=== PATIENT | female | born 1955 | race Caucasian/White ===

== ENCOUNTER → 2016-05-23 | Outpatient (CLI) | payer BC ==
[~2016-05-23] MED LIST: ACET-1311 PEG; ALBINS/ NEB; ALPR-411 PEG; BSP/10 PEG; BUSP-8 GT; BUSP-8 PEG; CEPH500C2 PO; CLR10 PEG; CONJ.6255 PEG; DEXT20CA PEG; ERYOPO OPR; FLUC100T4 PO; HYDR-3983 PO; IPRASOL4 INH; LANS30CA12 PO; LANS30TA3 PEG; METO25TA56 PEG; METO25TA56 PO; NUTR-673 PEG; ONDA10SO PEG; OXYB5TAB PO; PHEN-775 PO; RILU1TAB PEG; SACC250C3 PEG; TAMS0.4C38 PO
[2016-05-23 16:31] LABS: BLOOD UREA NITROGEN 28 mg/dl (7-18); BUN/CREATININE RATIO 102.2 (10-20); CALCIUM 9.3 mg/dl (8.5-10.1); CARBON DIOXIDE 23 mmol/L (21-32); CHLORIDE 107 mmol/L (98-107); CREATININE 0.27 mg/dl (0.60-1.20); GLUCOSE 96 mg/dl (70-99); POTASSIUM 3.8 mmol/L (3.5-5.1); SODIUM 139 mmol/L (136-145)
== END | disposition home or self-care (01) ==
LOC: C.LAB 15:04
PROVIDERS: ATTEND Physician Assistant
DX: G12.21 Amyotrophic lateral sclerosis (principal)

== ENCOUNTER → 2016-06-05 | Outpatient (CLI) | payer BC ==
[~2016-06-05] MED LIST changes: +ASCO1CHW PEG; +DTR5 PEG; +FESO8TAB PO; +KFLS250100 PO; +LCTXP PO; +LEVO1TAB34 PO; -METO25TA56 PO; +MRLP17 PEG; +SNKUDL10 PO
[2016-06-05 18:00] LABS: BASO % 0.5 %; BASO ABS # 0.04 K/uL (0-0.2); COMPLETE YES; EOS % 1.3 %; HEMATOCRIT 31.7 % (37-47); IG% 0.2 %; LYMPH % 36.7 %; LYMPH ABS # 3.06 K/uL (1.2-3.4); MEAN CELL VOLUME 93.8 fL (80-100); MEAN CORPUSCULAR HEMOGLOBIN 30.5 pg (25-34); MEAN CORPUSCULAR HGB CONC 32.5 g/dl (32-36); MEAN PLATELET VOLUME 10.7 fL (7.4-10.4); MONO % 5.9 %; NEUT % 55.4 %; PLATELET COUNT 465 K/uL (130-400); RED BLOOD COUNT 3.38 M/uL (4.2-5.4); WHITE BLOOD COUNT 8.34 K/uL (4.8-10.8)
[2016-06-05 18:13] LABS: PARTIAL THROMBOPLASTIN RATIO 1.1; PROTHROMBIN TIME (PATIENT) 10.8 SECONDS (9.0-12.0)
[2016-06-05 18:18] LABS: ALT/SGPT 51 U/L (12-78); AST/SGOT 27 U/L (15-37); BLOOD UREA NITROGEN 28 mg/dl (7-18); BUN/CREATININE RATIO 103.1 (10-20); CALCIUM 9.5 mg/dl (8.5-10.1); CARBON DIOXIDE 22 mmol/L (21-32); CHLORIDE 108 mmol/L (98-107); CREATININE 0.27 mg/dl (0.60-1.20); GLUCOSE 91 mg/dl (70-99); POTASSIUM 3.6 mmol/L (3.5-5.1); SODIUM 141 mmol/L (136-145)
[2016-06-05 18:20] LABS: ALB/GLOB RATIO 0.9 (0.9-2); ALKALINE PHOSPHATASE 150 U/L (45-117)
== END | disposition home or self-care (01) ==
LOC: C.LAB 16:14
PROVIDERS: ATTEND Internal Medicine Critical Care Medicine
DX: J96.10 Chronic respiratory failure, unspecified whether with hypoxia or hypercapnia (principal)

== ENCOUNTER 2016-06-12 08:15 | Day surgery (SDC) | payer BC ==
[2016-06-12] VITALS (16 sets, daily range): BP systolic 93–168; BP diastolic 67–112; PULSE 68–102; TEMP 36.3–37.5; O2SAT 99–100; Ht 161.3 cm; Wt 50.0 kg
[~2016-06-12] VITALS: Ht 161.3 cm; Wt 50.0 kg
--- NOTE | 2016-06-12 07:04 | History and Physical ---
History & Physical Date Jun 12, 2016. Chief Complaint 60-year-old vent dependent patient secondary to ALS here for follow-up on new tracheal secretions possible aspiration: History of Present Illness The patient is a 60 year old female with complaints of tracheal secretions possible aspiration: ALS with ventilator dependence: Continue on current ventilator settings:TV: 500 , RR:15, 12/5, 36% FiO2. Tracheal secretions: Appears at this time the most likely source of the patient' s tracheal secretions as oral secretions. Set the patient up for bronchoscopy for evaluation of the upper airway possibly consistent with chronic aspiration as well as lower airway as patient has decreased breath sounds right lower lobe and history of aspiration pneumonia. Past Medical/Surgical History Medical Problems: (1) ALS (amyotrophic lateral sclerosis) (2) GERD (gastroesophageal reflux disease) Additional History Hepatic Disease: No Endocrine Disorder: No Kidney Disease: No Hypertension: No Heart Disease: No Bleeding Tendencies: No Infectious Diseases: No Allergies Coded Allergies: Sulfamethoxazole w/Trimethoprim (Unverified Allergy, Unknown, RASH, 07/27/15 ) Home Medications Scheduled Buspirone Hcl (Buspirone Hcl), 10 MG PEG BID Dextromethorphan Hbr-Quinidine (Nuedexta), 10 MG PEG BID Lansoprazole (Prevacid), 30 MG PO QAM Metoprolol Tartrate (Lopressor) (Lopressor), 12.5 MG PEG BID Riluzole (Riluzole), 50 MG PEG BID Saccharomyces Boulardii (Florastor), 1 CAP PEG BID Scheduled PRN Acetaminophen (Tylenol), 325 MG PEG Q6 PRN for Pain Albuterol Sulf (Proventil 0.083% 2.5MG/3ML), 2.5 MG INH Q4H PRN for SOB/Wheezing Alprazolam (Xanax), 0.5 MG PEG BID PRN for Anxiety Physical Examination Skin: warm/dry, no rash Eyes: normal inspection, EOMI, sclerae normal ENT: pharynx normal, + pertinent finding (tracehaostomy midline with no active signs of infection bur notable clear secreations ) Head: normocephalic, atraumatic Neck: supple, no adenopathy, trachea midline Respiratory/Chest: lungs clear, normal breath sounds, no respiratory distress, + pertinent finding Cardiovascular: regular rate, rhythm, no edema, no murmur Abdomen / GI: normal bowel sounds, non tender Back: normal inspection Extremities: normal inspection, normal range of motion Neurologic/Psych: alert, + pertinent finding (0/5 relfexes gloablaly with 0/5 strength globaly ) Diagnosis ALS with possible aspiration ASA Classification: ASA Class III Plan of Treatment Bronchoscopy with evaluation of the patients upper and lower airway with BAL for possible aspiration versus secondary infection
[~2016-06-12 08:15] MED LIST changes: -ACET-1311 PEG; -ALBINS/ NEB; -ASCO1CHW PEG; -BSP/10 PEG; -BUSP-8 GT; -CEPH500C2 PO; -CLR10 PEG; -CONJ.6255 PEG; -DEXT20CA PEG; -DTR5 PEG; -ERYOPO OPR; -FESO8TAB PO; -FLUC100T4 PO; -HYDR-3983 PO; -IPRASOL4 INH; -KFLS250100 PO; -LANS30TA3 PEG; -LCTXP PO; -LEVO1TAB34 PO; -MRLP17 PEG; -NUTR-673 PEG; -ONDA10SO PEG; -OXYB5TAB PO; -PHEN-775 PO; -RILU1TAB PEG; -SACC250C3 PEG; -SNKUDL10 PO; -TAMS0.4C38 PO
[2016-06-12] MEDS ORDERED: MIDAZOLAM HCL 5 MG/ML 1 ML VIAL IV ONE ×2 (08:16→12:15)
[2016-06-12] MEDS ORDERED: LIDOCAINE HCL 2% LOCAL 50ML VIAL INFIL ONE (08:16)
[2016-06-12] MEDS ORDERED: LIDOCAINE 4% W/AFRIN NASAL SOLN 4ML ONE (08:16)
[2016-06-12] MEDS ORDERED: FENTANYL CITRATE INJ 50 MCG/1 ML 2 ML VIAL IV ONE ×2 (08:16→12:15)
[2016-06-12] MEDS ORDERED: BUSP-8 GT (09:13)
--- NOTE | 2016-06-12 10:57 | History & Physical Bridge Note ---
H&P Re-Evaluation Bridge Note: I have examined the patient, reviewed the History & Physical and in the interval since the performance of the History & Physical I have noted the following changes of clinical significance: No changes noted
--- NOTE | 2016-06-12 10:58 | Procedure Note ---
Pre-Mod Sedation Assessment General Date of Moderate Sedation: Jun 12, 2016. Vital Signs: Vital Signs Past 12 Hours Date Time Temp Pulse Resp B/P Pulse Ox O2 Delivery O2 Flow Rate FiO2 06/12/16 09:15 36.6 68 16 102/78 100 Room Air Mechanical Ventilator Review Cardiovascular: regular rate, rhythm, no edema, no gallop, no JVD, no murmur, normal peripheral pulses Abdomen: normal bowel sounds, non tender, soft, no organomegaly, no pulsatile mass, normal rectal exam, occult blood negative Lungs: chest non-tender, lungs clear, normal breath sounds, no respiratory distress, no accessory muscle use Pre-Sedation Airway Assessment Oral Cavity: WNL Short Thick Neck: No Hx of Sleep Apnea: No Smoking Status: Never Smoker Mallampati Classification: Class III ASA Classification: Class IV Procedure Planning Contraindications-for Mod Sed: None Yes Notes The planned sedation has been discussed with the patient and consent obtained. I have identified the patient, determined the appropriateness of sedation and have assessed the patient immediately prior to the procedure. All medicine(s) and interventions are by my order.
--- NOTE | 2016-06-12 11:53 | Procedure Note ---
Post-Moderate Sedation Plan General Date of Moderate Sedation Jun 12, 2016. Vital Signs: Vital Signs Past 12 Hours Date Time Temp Pulse Resp B/P Pulse Ox O2 Delivery O2 Flow Rate FiO2 06/12/16 11:28 72 16 117/82 100 Room Air 6.0 Mechanical Ventilator 06/12/16 11:15 72 16 110/81 100 Room Air 6.0 Mechanical Ventilator 06/12/16 09:15 36.6 68 16 102/78 100 Room Air Mechanical Ventilator Review - Discharge Plan Post Moderate Sedation Plan: On clinical assessment, the patient appears to have tolerated the conscious sedation without complications. Patient is recovering as anticipated. Patient will continue to be monitored by nursing and may be discharged when conscious sedation discharge criteria are met.
--- NOTE | 2016-06-12 11:57 | Bronchoscopy Procedure Note ---
Bronchoscopy Procedure Note Procedure: Bronchoscopy, conscious sedation, tracheostomy change, bronchial lavage of the right lower lobe Consent: Obtained through the patient placed into the chart Preprocedural diagnosis: Aspiration associated with ALS Postprocedural diagnosis: Aspiration associated with ALS Start time: 1125 End time: 1145 Total time: 20 minutes Analgesia: 2% liquid lidocaine: Via nebulizer 4% gel lidocaine: Via right naris 2% liquid lidocaine: Via bronchoscopy Sedation: Versed IV: 3 mg Fentanyl IV: 50 g Procedure: The Olympus video bronchoscope was used for this procedure Right naris/posterior naris: Small central scar tissue Posterior oropharynx: Tremendous amount of redundant tissue with copious amounts of oral secretions Glottis: Difficult to visualize as well as tremendous amount of redundant tissue Vocal cords: Anatomically within normal limits no signs of abduction or abduction Subglottis: Copious amounts of oral secretions Trachea above the level of the tracheostomy: Erythematous especially the posterior wall with copious amounts of oral secretions signs of infection Trachea at the site of the ostomy: No signs of tissue breakdown no signs of acute infection Trachea below the tracheostomy: Anatomically within normal limits, erythematous changes on the posterior wall Ivette: Anatomically within normal limits Right bronchial tree: Right mainstem bronchus: Anatomically within normal limits Right upper lobe: Anatomically within normal limits Bronchus intermedius: Anatomically within normal limits Right middle lobe: Anatomically within normal limits Right lower lobe: Anatomically within normal limits Findings: Mild erythematous changes in the posterior wall Left bronchial tree: Left mainstem bronchus: Anatomically within normal limits Left upper lobe: Anatomically within normal limits Lingula: Anatomically within normal limits Left lower lobe: Anatomically within normal limits Findings: Mild erythematous changes on the posterior wall Bronchial alveolar lavage: 60 cc of normal saline with 40 cc returned BAL performed in the right lower lobe Complications: None Follow-up: Patient will follow-up in [facility] then in the [place] [facility]
[2016-06-12] MEDS ORDERED: NURSING VERBAL MED ORDER ONE (12:00)
--- NOTE | 2016-06-12 12:00 | Discharge Instructions ---
Discharge Instructions Date of Service Jun 12, 2016. Admission Reason for Admission: Chronic Resp. Failure Discharge Discharge Diagnosis / Problem: ALS with aspiration Discharge Goals Goal(s): Improve function, Diagnostic testing Activity Recommendations Activity Limitations: resume your previous activity . Instructions / Follow-Up Instructions / Follow-Up Patient to follow-up in the [place] [facility] Current Hospital Diet Patient's current hospital diet: Discharge Diet Recommended Diet: Regular Diet Procedures Procedures Performed: Bronchoscopy, tracheostomy exchange Pending Studies Studies pending at discharge: yes List of pending studies: Bronchial washing/lavage of the right lower lobe: Microbiology, fungal studies pending Medical Emergencies . Who to Call and When: Medical Emergencies: If at any time you feel your situation is an emergency, please call 911 immediately. . Non-Emergent Contact Non-Emergency issues call your: Pbx Wire Chief Call Non-Emergent contact if: temperature is above 101.5 . . "Provider Documentation" section prepared by Jhonny Triplett. VTE Core Measure Inpt VTE Proph given/why not?: Treatment not indicated
[2016-10-03] MEDS ORDERED: LANS30TA3 PEG (09:10)
[2016-10-03] MEDS ORDERED: CLR10 PEG (09:13)
[2016-10-03] MEDS ORDERED: SACC250C3 PEG (09:51)
[2016-10-03] MEDS ORDERED: DEXT20CA PEG (16:28)
[2016-10-17] MEDS ORDERED: CONJ.6255 PEG (12:26)
[2016-10-17] MEDS ORDERED: BUSP-8 PEG (12:26)
[2016-10-17] MEDS ORDERED: METO25TA56 PEG (12:26)
[2016-10-17] MEDS ORDERED: NUTR-673 PEG (12:26)
[2016-10-17] MEDS ORDERED: IPRASOL4 INH (12:26)
[2016-10-23] MEDS ORDERED: CEPH500C2 PO (09:02)
[2016-10-23] MEDS ORDERED: FLUC100T4 PO (09:18)
[2016-10-23] MEDS ORDERED: OXYB5TAB PO (09:18)
[2016-11-06] MEDS ORDERED: PHEN-775 PO (09:07)
[2016-11-06] MEDS ORDERED: CEPH500C2 PO (09:07)
[2016-11-06] MEDS ORDERED: OXYB5TAB PO (09:07)
[2016-11-06] MEDS ORDERED: TAMS0.4C38 PO (09:07)
[2016-11-06] MEDS ORDERED: HYDR-3983 PO (09:08)
[2016-12-28] MEDS ORDERED: FESO8TAB PO (12:29)
[2016-12-28] MEDS ORDERED: DTR5 PEG (17:07)
[2016-12-30] MEDS ORDERED: KFLS250100 PO (08:51)
[2016-12-30] MEDS ORDERED: LEVO1TAB34 PO (08:51)
[2016-12-30] MEDS ORDERED: ASCO1CHW PEG (08:51)
[2016-12-30] MEDS ORDERED: MRLP17 PEG (08:51)
[2016-12-30] MEDS ORDERED: SNKUDL10 PO (08:51)
[2016-12-30] MEDS ORDERED: LCTXP PO (08:51)
== END 2016-06-12 14:08 | disposition home or self-care (01) ==
LOC: C.ACU 08:15
PROVIDERS: ATTEND Internal Medicine Critical Care Medicine
DX: G12.21 Amyotrophic lateral sclerosis (principal); K21.9 Gastro-esophageal reflux disease without esophagitis; Z99.81 Dependence on supplemental oxygen; Z79.899 Other long term (current) drug therapy; J96.10 Chronic respiratory failure, unspecified whether with hypoxia or hypercapnia; T17.500A Unspecified foreign body in bronchus causing asphyxiation, initial encounter

== ENCOUNTER → 2016-06-29 | Outpatient (CLI) | payer BC ==
[~2016-06-29] MED LIST changes: +ACET-1311 PEG; +ALBINS/ NEB; +ASCO1CHW PEG; +BSP/10 PEG; +CEPH500C2 PO; +CLR10 PEG; +CONJ.6255 PEG; +DEXT20CA PEG; +DTR5 PEG; +ERYOPO OPR; +FESO8TAB PO; +FLUC100T4 PO; +HYDR-3983 PO; +IPRASOL4 INH; +KFLS250100 PO; -LANS30CA12 PO; +LANS30TA3 PEG; +LCTXP PO; +LEVO1TAB34 PO; +MRLP17 PEG; +NUTR-673 PEG; +ONDA10SO PEG; +OXYB5TAB PO; +PHEN-775 PO; +RILU1TAB PEG; +SACC250C3 PEG; +SNKUDL10 PO; +TAMS0.4C38 PO
[2016-06-29 20:16] LABS: URINE APPEARANCE TURBID (CLEAR); URINE BILIRUBIN NEG (NEG); URINE COLOR YELLOW; URINE EPITHELIAL CELL AUTO >30 /lpf (0-5); URINE NITRITE POS (NEG); URINE PH 7.5 (4.5-7.5); URINE SPECIFIC GRAVITY 1.014 (1.000-1.030); UROBILINOGEN NEG (NEG)
[2016-06-29 20:17] LABS: MANUAL MICROSCOPIC REQUIRED? NO; REVIEW REQ? NO
== END | disposition home or self-care (01) ==
LOC: C.LAB 19:08
PROVIDERS: ATTEND Nurse Practitioner Family
DX: R39.9 Unspecified symptoms and signs involving the genitourinary system (principal)

== ENCOUNTER 2016-10-03 16:28 | Emergency (ER) | payer BC ==
[~2016-10-03 16:28] MED LIST changes: -ACET-1311 PEG; -ALBINS/ NEB; -BSP/10 PEG; -CEPH500C2 PO; -CONJ.6255 PEG; -ERYOPO OPR; -FLUC100T4 PO; -HYDR-3983 PO; -IPRASOL4 INH; -METO25TA56 PO; -NUTR-673 PEG; -ONDA10SO PEG; -OXYB5TAB PO; -PHEN-775 PO; -RILU1TAB PEG; -TAMS0.4C38 PO
[2016-10-03 16:34] VITALS: TEMP 36.8
[2016-10-03] MEDS ORDERED: ALPR-411 PEG (17:11)
[2016-10-03] MEDS ORDERED: ONDA10SO PEG (17:11)
[2016-10-03] MEDS ORDERED: BSP/10 PEG (17:11)
[2016-10-03] MEDS ORDERED: PROPARACAINE HCL 0.5% OP SOLN 15 ML BTL ONE (17:12)
[2016-10-03] MEDS ORDERED: ACET-1311 PEG (17:18)
[2016-10-03] MEDS ORDERED: ERYTHROMYCIN OP OINT 1 GM PKT OP STA (17:28)
--- NOTE | 2016-10-03 17:31 | EMERGENCY ROOM VISIT NOTE ---
History Report prepared by Charlie: Jalen Lao Under the Supervision of: Dr. Rachael Tsai D.O. First contact with patient: 17:03 Chief Complaint: EYE ASSESSMENT Stated Complaint: SWELLING IN R EYE History of Present Illness The patient is a 60 year old female who presents to the Emergency Room for an eye assessment. The patient is a quadriplegic and on a home ventilator. This history is given by her daughter secondary to this. Earlier today, the patient' s grandson leaning on her, bumped her glasses, and the ear piece of the glasses struck her right eye. The eye is red and was initially swollen, but now improving. She rates her pain a 4/10 in severity. She uses her eyes with a computer to communicate, so having functional eyes is very important for the patient. She is unable to use the computer communication device secondary to this incident. No other trauma, pt otw in her usual condition per daughter. Source of History: family Onset: earlier today Position: eye (right) Symptom Intensity: 4/10 Quality: sharp Timing: constant Associated Symptoms: + urinary symptoms Note: She denies any other symptoms at this time. Review of Systems See HPI for pertinent positives & negatives. A total of 10 systems reviewed and were otherwise negative. Past Medical & Surgical Medical Problems: (1) ALS (amyotrophic lateral sclerosis) (2) GERD (gastroesophageal reflux disease) Family History FH: cancer FHx: heart disease Hypertension Social History Smoking Status: Never Smoker Smokeless Tobacco Use: No Alcohol Use: none Drug Use: none Marital Status: single Housing Status: lives with family Occupation Status: unemployed, disabled Current/Historical Medications Scheduled Buspirone HCl (Buspirone HCl), 10 MG PEG BID Dextromethorphan Hbr-Quinidine (Nuedexta), 10 MG PEG BID Erythromycin Opth (Erythromycin Opth), 1 APPLN OPR QID Lansoprazole (Prevacid Solutab), 30 MG PEG DAILY Loratadine (Claritin), 10 MG PEG DAILY Riluzole (Riluzole), 50 MG PEG BID Saccharomyces Boulardii (Florastor), 250 MG PEG BID Scheduled PRN Acetaminophen (Tylenol), 325 MG PEG Q6H PRN for Pain Albuterol Sulf (Proventil 0.083% 2.5MG/3ML), 2.5 MG NEB Q4H PRN for SOB/Wheezing Alprazolam (Alprazolam), 0.5 MG PEG BID PRN for Anxiety Ondansetron Hcl (Zofran), 5-8 ML PEG Q6H PRN for Nausea Allergies Coded Allergies: Sulfamethoxazole w/Trimethoprim (Unverified Allergy, Unknown, RASH, ) Physical Exam Vital Signs Date Time Temp Pulse Resp B/P (MAP) Pulse Ox O2 Delivery O2 Flow Rate FiO2 10/03/16 18:15 88 20 118/70 98 10/03/16 16:34 36.8 52 16 133/86 96 Room Air Right Eye Acuity: unable to complete quadriplegic and unable to communicate Physical Exam GENERAL: Patient is a quadriplegic and is in a wheelchair. Trach tube in place. EYE EXAM: PERRL and EOM's grossly intact. right eye: there is a small amount of blood along the medial canthus and inferior lid margin, no obvious foreign body , small punctate area of erythema along the inferior aspect of the lacrimal caruncle behind the inferior lacrimal pupilla, no obvious bleeding, no periorbital edema or ecchymosis, no sub-conjunctival hemorrhage, no proptosis or ptosis. No evidence of injury to left eye, normal exam. Bedside exam with headset magnifying lens, blue light and staining - no evidence of uptake to suggest a corneal abrasion, no seidels sign. OROPHARYNX: no exudate, no erythema, lips, buccal mucosa, and tongue normal and mucous membranes are moist NECK: supple, no nuchal rigidity, no adenopathy, non-tender LUNGS: Normal chest wall mechanics. No obvious respiratory distress. HEART: normal pulse, no JVD ABDOMEN: abdomen soft, non-tender, normo-active bowel sounds, no masses, no rebound or guarding. SKIN: no rashes and no bruising EXTREMITIES: Atrophy and contractures to all four extremities. NEURO EXAM: Patient is a quadriplegic, in a wheelchair, nonverbal, can follow commands with her eyes. Medical Decision & Procedures Medications Administered Medications (Trade) Dose Ordered Sig/Ger Route Start Time Stop Time Status Last Admin Dose Admin Erythromycin (Erythromycin Oph Oint) 1 appln NOW STAT OP 10/03/16 17:28 10/03/16 17:29 DC 10/03/16 18:12 1 APPLN ED Course 1703: The patient was evaluated in room A4. A complete history and physical exam was performed. 1712: Ordered Proparacaine HCl 225 drops .ROUTE 1728: Ordered Erythromycin 1 appln OP 1800: Upon reevaluation, the patient is feeling better. I discussed the findings and the treatment plan with the patient and her daughter. They verbalize agreement and understanding. She was discharged home. Medical Decision Patient with isolated minor trauma along the eye. No evidence of corneal abrasion, globe disruption, iritis, foreign body. Doubt retrobulbar hemorrhage , doubt periorbital cellulitis or orbital cellulitis. Likely small laceration between lacrimal caruncle and inferior lacrimal pupilla. Area irrigated and no recurrent blood noted. Patient tolerated procedure well. Given area of involvement, patient placed on erythromycin ophthalmic ointment as a precaution. Instructed daughter in close follow-up with ophthalmology as a precaution, symptoms to watch and return for, she verbalized understanding was agreeable with plan. Patient otherwise in her usual state of health with multiple chronic comorbidities secondary to quadriplegia status. Instructed that she could otherwise continue her usual routine, diet, and meds. Medication Reconcilliation Current Medication List: was personally reviewed by me Blood Pressure Screening Patient's blood pressure: Normal blood pressure Blood pressure disposition: Did not require urgent referral Impression Primary Impression: Eye injury Scribe Attestation The scribe's documentation has been prepared under my direction and personally reviewed by me in its entirety. I confirm that the note above accurately reflects all work, treatment, procedures, and medical decision making performed by me. Departure Information Dispostion Home / Self-Care Prescriptions Erythromycin Opth (ERYTHROMYCIN OPTH) 12 Appln/3.5 Gm Oint 1 APPLN OPR QID, #1 UNIT Prov: Rachael Tsai DO 10/03/16 Referrals Ijeoma Foss DO (PCP) Forms HOME CARE DOCUMENTATION FORM, IMPORTANT VISIT INFORMATION, WORK / SCHOOL INSTRUCTIONS Patient Instructions My [facility] Additional Instructions Please follow-up with ophthamology in 2 days to recheck the eye and the area of injury. If the area becomes more painful, you develop swelling around the eye, the white part of the eye appears red and irritated, your vision is worsening, you develop fevers, or you have any other new or concerning symptoms, please return to the emergency room. Please use the eye ointment 4 times a day for the next 3-5 days, or until otherwise directed by the eye doctor. Problem Qualifiers Primary Impression: Eye injury Encounter type: initial encounter Laterality: right Qualified Codes: S05.91XA - Unspecified injury of right eye and orbit, initial encounter
[2016-10-03] MEDS ORDERED: ERYOPO OPR (17:39)
[2016-10-03 18:15] VITALS: BP 118/70; PULSE 88; O2SAT 98
[2016-10-03] MEDS ORDERED: RILU1TAB PEG (19:56)
[2016-10-03] MEDS ORDERED: ALBINS/ NEB (20:02)
[2016-10-17] MEDS ORDERED: NUTR-673 PEG (12:26)
[2016-10-17] MEDS ORDERED: CONJ.6255 PEG (12:26)
[2016-10-17] MEDS ORDERED: IPRASOL4 INH (12:26)
[2016-10-17] MEDS ORDERED: METO25TA56 PO (12:26)
[2016-10-17] MEDS ORDERED: BUSP-8 PEG (12:26)
[2016-10-23] MEDS ORDERED: CEPH500C2 PO (09:02)
[2016-10-23] MEDS ORDERED: OXYB5TAB PO (09:18)
[2016-10-23] MEDS ORDERED: FLUC100T4 PO (09:18)
[2016-11-06] MEDS ORDERED: PHEN-775 PO (09:07)
[2016-11-06] MEDS ORDERED: TAMS0.4C38 PO (09:07)
[2016-11-06] MEDS ORDERED: OXYB5TAB PO (09:07)
[2016-11-06] MEDS ORDERED: CEPH500C2 PO (09:07)
[2016-11-06] MEDS ORDERED: HYDR-3983 PO (09:08)
== END 2016-10-03 18:15 | disposition home or self-care (01) ==
LOC: C.EDB 16:30 → C.EDA 18:15
DX: S05.91XA Unspecified injury of right eye and orbit, initial encounter (principal); W22.8XXA Striking against or struck by other objects, initial encounter; G12.21 Amyotrophic lateral sclerosis; K21.9 Gastro-esophageal reflux disease without esophagitis; G82.50 Quadriplegia, unspecified; Z80.9 Family history of malignant neoplasm, unspecified; Z82.49 Family history of ischemic heart disease and other diseases of the circulatory system; Z79.899 Other long term (current) drug therapy; N39.0 Urinary tract infection, site not specified; R39.9 Unspecified symptoms and signs involving the genitourinary system

== ENCOUNTER → 2016-10-03 | Outpatient (CLI) | payer BC ==
[~2016-10-03] MED LIST changes: -ASCO1CHW PEG; -DTR5 PEG; -FESO8TAB PO; -KFLS250100 PO; -LCTXP PO; -LEVO1TAB34 PO; -METO25TA56 PEG; +METO25TA56 PO; -MRLP17 PEG; -SNKUDL10 PO
[2016-10-03 18:48] LABS: URINE APPEARANCE TURBID (CLEAR); URINE BILIRUBIN NEG (NEG); URINE COLOR DK YELLOW; URINE EPITHELIAL CELL AUTO >30 /lpf (0-5); URINE NITRITE NEG (NEG); URINE SPECIFIC GRAVITY 1.021 (1.000-1.030); UROBILINOGEN NEG (NEG)
[2016-10-03 19:05] LABS: MANUAL MICROSCOPIC REQUIRED? NO; REVIEW REQ? YES
[2016-10-03 19:25] LABS: SULFASALICYLIC ACID POS (NEG)
== END | disposition home or self-care (01) ==
LOC: C.LAB 17:45
PROVIDERS: ATTEND Family Medicine
DX: N39.0 Urinary tract infection, site not specified (principal); R39.9 Unspecified symptoms and signs involving the genitourinary system

== ENCOUNTER → 2016-10-05 | Outpatient (CLI) | payer BC ==
[~2016-10-05] MED LIST changes: +ACET-1311 PEG; +ALBINS/ NEB; +BSP/10 PEG; +CEPH500C2 PO; +CONJ.6255 PEG; +ERYOPO OPR; +FLUC100T4 PO; +HYDR-3983 PO; +IPRASOL4 INH; +METO25TA56 PO; +NUTR-673 PEG; +ONDA10SO PEG; +OXYB5TAB PO; +PHEN-775 PO; +RILU1TAB PEG; +TAMS0.4C38 PO
== END | disposition home or self-care (01) ==
LOC: C.LAB 14:30
PROVIDERS: ATTEND Family Medicine
DX: N39.0 Urinary tract infection, site not specified (principal)

== ENCOUNTER → 2016-10-17 | Outpatient (CLI) | payer BC ==
--- NOTE | 2016-10-17 14:40 | DIAGNOSTIC IMAGING REPORT ---
ABD/PELVIS NO IV OR ORAL CONT HISTORY: 60 years-old Female acute left flank pain with concern for kidney stone. History of constipation. COMPARISON: CT abdomen and pelvis 07/27/2015 TECHNIQUE: Multiple axial CT images of the abdomen and pelvis were obtained without the use of IV or oral contrast. A dose lowering technique was used consistent with the principals of YAJAIRA. FINDINGS: There is minimal subsegmental linear pleural-based opacities of the lung bases suggesting admixture of atelectasis with possible scarring. These findings appear unchanged. There is no pneumoperitoneum. Electrodes are noted along the inferior diaphragmatic surfaces bilaterally. Imaged inferior cardiac chambers are unremarkable. The liver, spleen, gallbladder, pancreas and adrenal glands are within normal limits. Large left staghorn calculus within the region of the renal pelvis is again seen, 3.3 x 1.3 x 1.7 cm. Additional calculi are seen involving the superior and inferior pole calyces. No significant left-sided hydronephrosis. There is unchanged mild dilation of the renal pelvis without distention of the calyces. There is a 2 mm calculus present within the region of the right ureterovesicular junction without associated significant right-sided obstructive uropathy. This is new from prior study. Multiple phleboliths are seen within the pelvis. Uterus and right adnexum are unremarkable. 9 mm hyperattenuating focus in the left adnexum is noted which appears unchanged. This is nonspecific with differential considerations including ovarian dermoid. Urinary bladder is unremarkable. The abdominal aorta is normal in both course and caliber. There is no bulky retroperitoneal adenopathy. 2.1 x 1.4 cm structure in the left upper abdomen contain dependent hyperattenuating material, unchanged from prior suggesting a gastric diverticulum. Gastrostomy tube is seen within the mid gastric lumen. No bowel obstruction. Stool distended rectum is noted. There is atrophy of the musculature. The bones are moderately demineralized. There is mild sigmoidal scoliosis of the lumbar spine. Facet arthrosis involves lower lumbar spine. IMPRESSION: 1. 2 mm calculus of the right ureterovesicular junction is noted without significant obstructive uropathy. 2. Large left sided staghorn calculus redemonstrated without left ureteral calculi or left-sided obstructive uropathy. 3. 9 mm hyperattenuating focus in the region of the left adnexum is unchanged and nonspecific. Differential considerations would include ovarian dermoid. This could be further evaluated with pelvic ultrasound. 4. Probable small gastric diverticulum, unchanged. The above report was generated using voice recognition software. It may contain grammatical, syntax or spelling errors. Electronically signed by: Nicola Resendiz M.D. 10/17/2016 2:38 PM Dictated Date/Time: 10/17/2016 2:29 PM
== END | disposition home or self-care (01) ==
LOC: C.CTS 11:48
PROVIDERS: ATTEND Urology
DX: N20.0 Calculus of kidney (principal); N20.1 Calculus of ureter; R93.5 Abnormal findings on diagnostic imaging of other abdominal regions, including retroperitoneum

== ENCOUNTER → 2016-10-19 | Outpatient (CLI) | payer BC ==
[~2016-10-19] MED LIST changes: -BSP/10 PEG; -ERYOPO OPR
[2016-10-19 13:42] LABS: URINE APPEARANCE CLOUDY (CLEAR); URINE BILIRUBIN NEG (NEG); URINE COLOR DK YELLOW; URINE EPITHELIAL CELL AUTO 0-5 /lpf (0-5); URINE NITRITE NEG (NEG); URINE SPECIFIC GRAVITY 1.025 (1.000-1.030); UROBILINOGEN NEG (NEG)
[2016-10-19 13:52] LABS: MANUAL MICROSCOPIC REQUIRED? NO; REVIEW REQ? YES
== END | disposition home or self-care (01) ==
LOC: C.LABSPEC 11:39
PROVIDERS: ATTEND Urology
DX: N39.0 Urinary tract infection, site not specified (principal)

== ENCOUNTER 2016-10-23 05:28 | Day surgery (SDC) | payer BC ==
[2016-10-17 12:27] VITALS: BMI 19.0
--- NOTE | 2016-10-17 13:03 | PAT Medication Instructions ---
Service Date Oct 17, 2016. Current Home Medication List Acetaminophen (Tylenol), 325 MG PEG Q6H PRN for Pain Albuterol Sulf (Proventil 0.083% 2.5MG/3ML), 2.5 MG NEB Q4H PRN for SOB/Wheezing Alprazolam (Alprazolam), 0.5 MG PEG BID PRN for Anxiety Buspirone Hcl (Buspirone Hcl), 10 MG PO BID Dextromethorphan Hbr-Quinidine (Nuedexta), 10 MG PEG BID Enteral Nutrition Formula (Jevity 1.5 Marlon), 1 CAN PEG UD Estrog Conj/Medryoxyprog Acet (Prempro 0.625MG/2.5MG), 1 TAB PEG HS Ipratropium-Albuterol (Duoneb), 1 TREATMENT INH Q4H PRN for SOB/Wheezing Lansoprazole (Prevacid Solutab), 30 MG PEG HS Loratadine (Claritin), 10 MG PEG DAILY PRN for ALLGERIES Metoprolol Tartrate (Lopressor) (Lopressor), 12.5 MG PO BID Ondansetron Hcl (Zofran), 5-8 ML PEG Q6H PRN for Nausea Riluzole (Riluzole), 50 MG PEG BID Saccharomyces Boulardii (Florastor), 250 MG PEG BID Medication Instructions For Your Scheduled Surgery - Hold the following medications the morning of surgery: Enteral Nutrition Formula (Jevity 1.5 Marlon), 1 CAN PEG UD Dextromethorphan Hbr-Quinidine (Nuedexta), 10 MG PEG BID Loratadine (Claritin), 10 MG PEG DAILY PRN for ALLGERIES Riluzole (Riluzole), 50 MG PEG BID Saccharomyces Boulardii (Florastor), 250 MG PEG BID - Take the following medications the morning of surgery with a sip of water: Metoprolol Tartrate (Lopressor) (Lopressor), 12.5 MG PO BID Ondansetron Hcl (Zofran), 5-8 ML PEG Q6H PRN for Nausea (if needed) Ipratropium-Albuterol (Duoneb), 1 TREATMENT INH Q4H PRN for SOB/Wheezing (if needed) Buspirone Hcl (Buspirone Hcl), 10 MG PO BID Albuterol Sulf (Proventil 0.083% 2.5MG/3ML), 2.5 MG NEB Q4H PRN for SOB/ Wheezing (if needed) Alprazolam (Alprazolam), 0.5 MG PEG BID PRN for Anxiety (if needed) Acetaminophen (Tylenol), 325 MG PEG Q6H PRN for Pain (if needed) - Take the following medications as scheduled the night before surgery: Metoprolol Tartrate (Lopressor) (Lopressor), 12.5 MG PO BID Ondansetron Hcl (Zofran), 5-8 ML PEG Q6H PRN for Nausea (if needed) Lansoprazole (Prevacid Solutab), 30 MG PEG HS Ipratropium-Albuterol (Duoneb), 1 TREATMENT INH Q4H PRN for SOB/Wheezing (if needed) Dextromethorphan Hbr-Quinidine (Nuedexta), 10 MG PEG BID Estrog Conj/Medryoxyprog Acet (Prempro 0.625MG/2.5MG), 1 TAB PEG HS Buspirone Hcl (Buspirone Hcl), 10 MG PO BID Albuterol Sulf (Proventil 0.083% 2.5MG/3ML), 2.5 MG NEB Q4H PRN for SOB/ Wheezing (if needed) Alprazolam (Alprazolam), 0.5 MG PEG BID PRN for Anxiety (if needed) Acetaminophen (Tylenol), 325 MG PEG Q6H PRN for Pain (if needed) If you have any questions please call us at [phone] or [phone] or [phone]
[2016-10-17 13:51] LABS: BASO % 0.4 %; BASO ABS # 0.03 K/uL (0-0.2); COMPLETE YES; EOS % 1.6 %; HEMATOCRIT 37.3 % (37-47); IG% 0.3 %; LYMPH % 46.8 %; LYMPH ABS # 3.58 K/uL (1.2-3.4); MEAN CELL VOLUME 96.1 fL (80-100); MEAN CORPUSCULAR HEMOGLOBIN 30.9 pg (25-34); MEAN CORPUSCULAR HGB CONC 32.2 g/dl (32-36); MEAN PLATELET VOLUME 11.1 fL (7.4-10.4); MONO % 6.1 %; NEUT % 44.8 %; PLATELET COUNT 360 K/uL (130-400); RED BLOOD COUNT 3.88 M/uL (4.2-5.4); WHITE BLOOD COUNT 7.65 K/uL (4.8-10.8)
[2016-10-17 14:08] LABS: BUN/CREATININE RATIO 118.7 (10-20); CALCIUM 9.7 mg/dl (8.5-10.1); CREATININE 0.31 mg/dl (0.60-1.20); POTASSIUM 4.4 mmol/L (3.5-5.1)
--- NOTE | 2016-10-17 14:23 | DIAGNOSTIC IMAGING REPORT ---
CHEST 2 VIEWS ROUTINE CLINICAL HISTORY: Preoperative evaluation. COMPARISON STUDY: Chest radiograph July 27, 2015. FINDINGS: Tracheostomy tube is in place. Mild elevation of the left hemidiaphragm is unchanged. There is no evidence of pulmonary edema. No pneumothorax or pleural effusion is present. Bibasilar opacities favor atelectasis. IMPRESSION: 1. No acute cardiopulmonary findings. 2. Bibasilar opacities which favor atelectasis. Electronically signed by: Lalito Pike M.D. 10/17/2016 2:21 PM Dictated Date/Time: 10/17/2016 2:17 PM
[~2016-10-23] VITALS: Ht 162.6 cm; Wt 50.0 kg
[~2016-10-23 05:28] MED LIST changes: -CEPH500C2 PO; -FLUC100T4 PO; -HYDR-3983 PO; -OXYB5TAB PO; -PHEN-775 PO; -TAMS0.4C38 PO
[2016-10-23] MEDS ORDERED: CEFAZOLIN 2000 MG/60 ML D5W 60 ML IV SCH (06:00)
[2016-10-23] MEDS ORDERED: LACTATED RINGER'S 1000ML 1,000 ML IV SCH (06:00)
[2016-10-23] MEDS ORDERED: LACTATED RINGER'S 1000ML IV SCH (06:00)
[2016-10-23 06:08] VITALS: BP 121/74; PULSE 66; TEMP 36.8; O2SAT 99; Ht 162.6 cm; Wt 50.0 kg
[2016-10-23] MEDS ORDERED: ONDANSETRON INJ 2 MG/ML 2 ML VIAL IV PRN (06:15)
[2016-10-23] MEDS ORDERED: ATROPINE SULFATE 0.1 MG/ML 5ML SYR IV PRN (06:15)
[2016-10-23] MEDS ORDERED: EpHEDrine SULFATE INJ 50 MG/ML AMP IV PRN (06:15)
[2016-10-23] MEDS ORDERED: PROPOFOL IV EMULSION 10 MG/ML 20 ML VIAL IV ONE (06:46)
[2016-10-23] MEDS ORDERED: DEXAMETHASONE SOD INJ 4 MG/ML VIAL ONE (06:46)
[2016-10-23] MEDS ORDERED: ONDANSETRON INJ 2 MG/ML 2 ML VIAL ONE (06:46)
[2016-10-23] MEDS ORDERED: MIDAZOLAM HCL 1 MG/ML 2ML VIAL ONE (06:46)
[2016-10-23] MEDS ORDERED: LIDOCAINE HCL 2% 2 ML VIAL (20MG/ML) ONE (06:46)
[2016-10-23] MEDS ORDERED: FENTANYL CITRATE INJ 50 MCG/1 ML 2 ML VIAL ONE ×2 (06:47→08:15)
[2016-10-23] MEDS ORDERED: SCOPOLAMINE 1.5 MG TDSY TD ONE (07:10)
--- NOTE | 2016-10-23 07:13 | History & Physical Bridge Note ---
H&P Re-Evaluation Bridge Note: I have examined the patient, reviewed the History & Physical and in the interval since the performance of the History & Physical I have noted the following changes of clinical significance: Right distal ureteral stone. Left Staghorn Stone. Plan to cystoscopy, bilateral ureteroscopy, bilateral stent, possible bilateral Laser Lithotripsy and/or Stone basket extraction No changes noted
[2016-10-23] MEDS ORDERED: CONRAY 30% 150ML BOTTLE ONE (07:16)
[2016-10-23] MEDS ORDERED: EpHEDrine SULFATE 50MG/5ML SYR ONE (07:46)
[2016-10-23] MEDS ORDERED: PROMETHAZINE HCL INJ 12.5 MG in SODIUM CHLORIDE 0.9% 50ML 50 ML IV PRN (08:00)
[2016-10-23] MEDS ORDERED: SCOPOLAMINE 1.5 MG TDSY TD SCH (08:00)
[2016-10-23] MEDS ORDERED: CEPH500C2 PO (09:02)
--- NOTE | 2016-10-23 09:04 | Discharge Instructions ---
Discharge Instructions Date of Service Oct 23, 2016. Admission Reason for Admission: Stones Discharge Discharge Diagnosis / Problem: Staghorn Left stone, Obstructing Right Stone Discharge Goals Goal(s): Decrease discomfort, Improve function Activity Recommendations Activity Limitations: resume your previous activity Exercise/Sports Limitations: as tolerated Shower/Bathe: no limitations . Instructions / Follow-Up Instructions / Follow-Up Jorge to bedside drainage. Continue antibiotic as ordered. Monitor for fevers. Call with any issues. Current Hospital Diet Hospital Diet(s): N/A Discharge Diet Recommended Diet: N/A Procedures Procedures Performed: Cystoscopy, Bilateral Ureteroscopy, Bilateral Retrograde Pyelogram, Left Laser Lithotripsy; Bilateral Stent Placement Pending Studies Studies pending at discharge: no Medical Emergencies . Who to Call and When: Medical Emergencies: If at any time you feel your situation is an emergency, please call 911 immediately. . Non-Emergent Contact Non-Emergency issues call your: Primary Care Provider, Urologist Call Non-Emergent contact if: you have a fever, temperature is above 100.5, temperature is above 101, your pain is not controlled, your pain is worsening, you have any medication questions . . "Provider Documentation" section prepared by Tani Mary,. . VTE Core Measure Inpt VTE Proph given/why not?: Jaime Byrd, SCD's
--- NOTE | 2016-10-23 09:11 | DIAGNOSTIC IMAGING REPORT ---
Radiology RETROGRADE INCLUDES KUB CLINICAL HISTORY: 60 years-old Female presenting with BILATERAL LASER/LITHO AND STENT. TECHNIQUE: 10 fluoroscopic spot image(s) obtained as part of an intraoperative procedure. COMPARISON: CT from 10/17/2016. FINDINGS/IMPRESSION: A catheter was introduced into the right ureter. Progressive opacification of the right renal pelvis, which is nondilated. A right ureteral stent was left in place. Subsequent introduction of a guidewire and catheter into the left ureter. Opacification of the left renal collecting system demonstrates extensive stone burden better evaluated on CT. A left ureteral stent was left in place. Please see surgical report for further details. Fluoroscopy dosage (mGy): Not available. Fluoroscopy time: 1.12 minutes. Number of fluoroscopic spot images: 10. Electronically signed by: Kwadwo Zabala M.D. 10/23/2016 9:09 AM Dictated Date/Time: 10/23/2016 9:08 AM
--- NOTE | 2016-10-23 09:16 | [facility] Operative Report ---
Operative Report Operative Date Oct 23, 2016. Pre-Operative Diagnosis Dysuria, urinary retention, Nephrolithiasis Post-Operative Diagnosis Dysuria, urinary retention, Nephrolithiasis Left Staghorn, Right ureteral obstruction Procedure(s) Performed Cystoscopy, Bilateral Ureteroscopy, Bilateral Retrograde Pyelogram, Left Laser Lithotripsy; Bilateral Stent Placement Surgeon Dr. Mary Mail Sorter And Delivery Surgeon(s) none Estimated Blood Loss 0 cc Findings Large stone burder >6cm in left renal pelvis. Small stone at UVJ Right, otherwise ureter clear. Fluids See Anes Report Specimens A: Left Kidney Stone Drains 5x24 Double J Ureteral Stent Bilateral. 16fr Jorge Anesthesia General Trach Complication(s) None Disposition Recovery Room / PACU Indications Obstructing right stone and large staghorn left. Risks and benefits discussed at length with patient and family. Agreeable and consented. Patient is quadriplegic and consent was through MPOA/Family. Description of Procedure Patient was consented and brought back to the operating room. Patient was placed under anesthesia and into the dorsal lithotomy position. A time out was completed. A 30degree Cystoscope was placed into the bladder and the entire bladder was examined. A large amount of sediment was appreciated in the bladder with small stone fragments. A fragment was noted at the right UO. The right was cannulized with a catheter, which dislodged the stone and a retrograde pyelogram was completed. A wire was then placed. A short rigid ureteroscope was selected and taken to the proximal ureter. A mild stricture was encountered in the distal ureter but no other abnormalities. The scope was removed. With the wire in place, a 6 x 24 Double J stent was placed. It was confirmed with fluoroscopy. The Left UO was then entered with a wire and a ureteral access sheath and safety wire were then placed. At this point, A flexible scope was taken into the ureter and the proximal ureter examined as well as the pelvis. Large burden staghorn of lower and mid calyx were discovered as well as large stones in the upper. The Laser was selected and the stone was pulverized to dust and small fragments after significant laser utilization. Small fragments were removed and sent for analysis. With the stone pulverized, a retrograde pyelogram was completed and the scope was removed monitoring and visualizing the entire ureter. A 6 x 24 Double J Stent was placed over the safety wire into the pelvis and confirmed with fluoroscopy. At this point, the bladder was left somewhat full and a 16 Fr Jorge was placed. The bladder was drained. The patient was cleaned, aroused from anesthesia, and transferred to the pacu in stable condition having tolerated the procedure well with no complications. I was present and participated in all aspects of the procedure. The patient will be monitored in the PACU until transferred. Will plan to second look ureteroscopy in 1-2 weeks. I attest to the content of the Intraoperative Record and any orders documented therein. Any exceptions are noted below.
[2016-10-23] MEDS ORDERED: FLUC100T4 PO (09:18)
[2016-10-23] MEDS ORDERED: OXYB5TAB PO (09:18)
[2016-10-23] MEDS: FENTANYL CITRATE INJ 50 MCG/1 ML 2 ML VIAL IV PRN ×4 (09:29→09:44)
[2016-10-23] MEDS: HYDROmorphone INJ 1 MG/ML SYR IV PRN ×4 (09:52→10:07)
--- NOTE | 2016-10-23 10:18 | Anesthesiology Progress Note ---
Anesthesia Post Op Note Date & Time Oct 23, 2016 at 10:18 Vital Signs Pain Intensity: 4.0 Vital Signs Past 12 Hours Date Time Temp Pulse Resp B/P (MAP) Pulse Ox O2 Delivery O2 Flow Rate FiO2 10/23/16 09:55 67 16 148/97 99 Mechanical Ventilator 10/23/16 09:45 61 16 157/95 99 Mechanical Ventilator 10/23/16 09:35 65 16 156/97 99 Mechanical Ventilator 10/23/16 09:25 60 16 148/96 99 Mechanical Ventilator 10/23/16 09:15 60 16 150/97 99 Mechanical Ventilator 10/23/16 09:05 62 16 161/102 99 Mechanical Ventilator 10/23/16 08:56 36.0 68 16 161/107 99 Mechanical Ventilator 10/23/16 06:08 36.8 66 18 121/74 (90) 99 Room Air Notes Mental Status: alert / awake / arousable, participated in evaluation Pt Amnestic to Procedure: Yes Nausea / Vomiting: adequately controlled Pain: adequately controlled Airway Patency, RR, SpO2: stable & adequate BP & HR: stable & adequate Hydration State: stable & adequate Anesthetic Complications: no major complications apparent Doing well. No n/v. Pain controlled.
[2016-10-23 10:30] VITALS: BP 145/87; PULSE 63; TEMP 35.9; O2SAT 99
[2016-10-23 11:00] VITALS: BP 148/89; PULSE 62; TEMP 36; O2SAT 98
[2016-10-23 11:30] VITALS: BP 145/86; PULSE 66; TEMP 35.9; O2SAT 98
[2016-10-23] MEDS ORDERED: CHECK SCOPOLAMINE PATCH PLACEMENT SCH (16:00)
== END 2016-10-23 11:45 | disposition home health service (06) ==
LOC: C.ACU 05:28
PROVIDERS: ATTEND Urology
DX: N20.0 Calculus of kidney (principal); N20.1 Calculus of ureter; G82.50 Quadriplegia, unspecified; J96.90 Respiratory failure, unspecified, unspecified whether with hypoxia or hypercapnia; R30.0 Dysuria; R33.9 Retention of urine, unspecified; F41.9 Anxiety disorder, unspecified; K21.0 Gastro-esophageal reflux disease with esophagitis; E03.9 Hypothyroidism, unspecified; Z87.440 Personal history of urinary (tract) infections; Z90.89 Acquired absence of other organs; Z82.49 Family history of ischemic heart disease and other diseases of the circulatory system; Z93.0 Tracheostomy status; Z93.1 Gastrostomy status; M62.81 Muscle weakness (generalized); Z87.442 Personal history of urinary calculi; F32.9 Major depressive disorder, single episode, unspecified; Z99.11 Dependence on respirator [ventilator] status

== ENCOUNTER → 2016-10-30 | Outpatient (CLI) | payer BC ==
[~2016-10-30] MED LIST changes: -ALBINS/ NEB; +CEPH500C2 PO; +HYDR-3983 PO; +OXYB5TAB PO; +PHEN-775 PO; +TAMS0.4C38 PO
--- NOTE | 2016-10-30 13:09 | DIAGNOSTIC IMAGING REPORT ---
KUB CLINICAL HISTORY: NO DX LISTED IN CHART COMPARISON STUDY: CT of the abdomen and pelvis October 17, 2016 and retrograde exam October 23, 2016. FINDINGS: Evaluation was difficult due to suboptimal positioning. Bilateral ureteral stents are in place. A large left renal staghorn calculus is again noted. Sensitivity for detection of ureteral calculi is significantly diminished due to suboptimal penetration. The distal right ureteral calculus shown on CT of October 17, 2016 is not visualized. IMPRESSION: 1. Bilateral ureteral stents in place. Redemonstration of a large left renal pelvis staghorn calculus. 2. Technically compromised exam, as described above. No ureteral calculi identified although sensitivity diminished on this exam. Electronically signed by: Lalito Pike M.D. 10/30/2016 1:08 PM Dictated Date/Time: 10/30/2016 1:05 PM
== END | disposition home or self-care (01) ==
LOC: C.RAD 11:18
PROVIDERS: ATTEND Urology
DX: N20.0 Calculus of kidney (principal)

== ENCOUNTER 2016-11-06 05:21 | Day surgery (SDC) | payer BC ==
[2016-10-24 09:03] VITALS: BMI 19.0
[~2016-11-06] VITALS: Ht 162.6 cm; Wt 50.0 kg
[~2016-11-06 05:21] MED LIST changes: -HYDR-3983 PO; -PHEN-775 PO; -TAMS0.4C38 PO
[2016-11-06] MEDS ORDERED: CEFAZOLIN 2000 MG/60 ML D5W IV SCH (06:00)
[2016-11-06] MEDS ORDERED: LACTATED RINGER'S 1000ML 1,000 ML IV SCH (06:00)
[2016-11-06 06:08] VITALS: BP 134/84; PULSE 76; TEMP 36.7; O2SAT 98; Ht 162.6 cm; Wt 50.0 kg
[2016-11-06] MEDS ORDERED: FENTANYL CITRATE INJ 50 MCG/1 ML 2 ML VIAL ONE ×3 (06:39→09:27)
[2016-11-06] MEDS ORDERED: MIDAZOLAM HCL 1 MG/ML 2ML VIAL ONE (06:39)
[2016-11-06] MEDS ORDERED: CONRAY 30% 150ML BOTTLE ONE (06:50)
--- NOTE | 2016-11-06 07:16 | History & Physical Bridge Note ---
H&P Re-Evaluation Bridge Note: I have examined the patient, reviewed the History & Physical and in the interval since the performance of the History & Physical I have noted the following changes of clinical significance: Cystoscopy with Right Stent Removal. Left Stent Exchange. Left Ureteroscopy, possible laser lithotripsy, Stone Extraction, Retrograde pyelogram. Possible Jorge Exchange.
[2016-11-06] MEDS ORDERED: PROPOFOL IV EMULSION 10 MG/ML 20 ML VIAL IV ONE (07:43)
[2016-11-06] MEDS ORDERED: ONDANSETRON INJ 2 MG/ML 2 ML VIAL ONE (07:43)
[2016-11-06] MEDS ORDERED: DEXAMETHASONE SOD INJ 4 MG/ML VIAL ONE (07:43)
[2016-11-06] MEDS ORDERED: EpHEDrine SULFATE 50MG/5ML SYR ONE (07:49)
[2016-11-06] MEDS ORDERED: HYDROmorphone INJ 2 MG/ML SYR/VIAL IV PRN (08:00)
[2016-11-06] MEDS ORDERED: MEPERIDINE HCL 25 MG/ML CARP IV PRN (08:00)
[2016-11-06] MEDS ORDERED: EpHEDrine SULFATE INJ 50 MG/ML AMP IV PRN (08:00)
[2016-11-06] MEDS ORDERED: ATROPINE SULFATE 0.1 MG/ML 5ML SYR IV PRN (08:00)
[2016-11-06] MEDS ORDERED: PHENYLEPHRINE 100MCG/ML 5ML SYR IV PRN (08:00)
[2016-11-06] MEDS ORDERED: ONDANSETRON INJ 2 MG/ML 2 ML VIAL IV PRN (08:00)
[2016-11-06] MEDS ORDERED: FLUMAZENIL 0.1 MG/1 ML 10 ML VIAL IV PRN (08:00)
[2016-11-06] MEDS ORDERED: NALOXONE HCL 0.4 MG/1 ML VIAL/CARP IV PRN (08:00)
[2016-11-06] MEDS ORDERED: LABETALOL HCL IV 5 MG/ML 20ML IV PRN (08:00)
[2016-11-06] MEDS ORDERED: FENTANYL CITRATE INJ 50 MCG/1 ML 2 ML VIAL IV PRN (08:00)
--- NOTE | 2016-11-06 09:03 | [facility] Operative Report ---
Operative Report Operative Date Nov 06, 2016. Pre-Operative Diagnosis Nephrolithiasis Post-Operative Diagnosis Nephrolithiasis Procedure(s) Performed Cystoscopy, Right Stent Removal; Cystoscopy, Left Ureteroscopy, Laser Lithotripsy; Stent Exchange with String; Stone basket extraction Surgeon Dr. [employer] Professional Surgeon(s) none Estimated Blood Loss 5mL Findings Large stone burden left kidney. Specimens Specimen A. Stone fragments left kidney Drains 6x24 L Anesthesia General Complication(s) None Disposition Recovery Room / PACU Indications Staghorn on left for second look URS Description of Procedure Patient was consented and brought back to the operating room. Patient was placed under anesthesia and into the dorsal lithotomy position. A time out was completed. A 30degree Cystoscope was placed into the bladder and the entire bladder was examined. The UO's were identified with stents in place. The right stent was removed. The left stent was grasped and partially removed. A wire was placed. With the wire, a ureteral access sheath and safety wire were placed. The Video URS was selected and placed into the left sheath. The pelvis was examined. Large stone burden was appreciated. Largely dust and small fragments from last URS. Did not appear to significantly pass since last. Larger fragments were further pulverized with laser lithotripsy. Fragments were grasped and removed with the basket and sent for composition assessment. The entire pelvis was examined. Large amount of dust and sediment was appreciated. A retrograde pyelogram showed all calyx clear of large stone fragments. Images were taken for the patient's chart. The wire was placed into the pelvis and the scope was removed visualizing the entire ureter. The scope removed, a 6 x 24 stent was placed on the left and confirmed with fluoroscopy. The string was left attached and secured with tegederm bandage. The bladder was emptied with placement of a 14 eritrean silicon catheter. The patient was cleaned, aroused from anesthesia, and transferred to the pacu in stable condition having tolerated the procedure well with no complications. I was present and participated in all aspects of the procedure. The patient will be monitored in the PACU until transferred. Due to poor mobility and lack of sediment passage, will need to consider longer period of stone clearance vs percutaneous stone extraction. Will await composition of stone to determine if infectious. Will also need to consider citrate therapy. I attest to the content of the Intraoperative Record and any orders documented therein. Any exceptions are noted below.
[2016-11-06] MEDS ORDERED: TAMS0.4C38 PO (09:07)
[2016-11-06] MEDS ORDERED: PHEN-775 PO (09:07)
[2016-11-06] MEDS ORDERED: OXYB5TAB PO (09:07)
[2016-11-06] MEDS ORDERED: CEPH500C2 PO (09:07)
[2016-11-06] MEDS ORDERED: HYDR-3983 PO (09:08)
--- NOTE | 2016-11-06 09:09 | Discharge Instructions ---
Discharge Instructions Date of Service Nov 06, 2016. Admission Reason for Admission: Stones Discharge Discharge Diagnosis / Problem: Stone Discharge Goals Goal(s): Decrease discomfort, Improve function Activity Recommendations Activity Limitations: resume your previous activity Lifting Limitations: none Exercise/Sports Limitations: none Shower/Bathe: no limitations . Instructions / Follow-Up Instructions / Follow-Up Maintain helton and stent with string until followup. Okay to bath. May have blood in urine or discomfort. Call if any fevers. Current Hospital Diet Hospital Diet(s): N/A Discharge Diet Recommended Diet: N/A Procedures Procedures Performed: Cystoscopy, Right Stent Removal; Cystoscopy, Left Ureteroscopy, Laser Lithotripsy; Stent Exchange with String; Stone basket extraction Pending Studies Studies pending at discharge: no Medical Emergencies . Who to Call and When: Medical Emergencies: If at any time you feel your situation is an emergency, please call 911 immediately. . Non-Emergent Contact Non-Emergency issues call your: Primary Care Provider, Urologist Call Non-Emergent contact if: you have a fever, temperature is above 101, your pain is not controlled, your pain is worsening . . "Provider Documentation" section prepared by Tani Mary,. . VTE Core Measure Inpt VTE Proph given/why not?: Jaime Byrd, SCD's
--- NOTE | 2016-11-06 09:20 | DIAGNOSTIC IMAGING REPORT ---
Radiology RETROGRADE INCLUDES KUB CLINICAL HISTORY: 60 years-old Female presenting with LT SIDE. TECHNIQUE: 3 fluoroscopic spot image(s) obtained as part of an intraoperative procedure. COMPARISON: 10/23/2016. FINDINGS/IMPRESSION: A guidewire is noted in an upper pole calyx of the left kidney and the left renal collecting system is opacified with contrast. Catheters noted in the left ureter. Subsequently, a double-J ureteral stent was placed. Residual contrast noted in the left renal collecting system at the last saved image. Please see surgical report for further details. Fluoroscopy dosage (mGy): Not available. Fluoroscopy time: 1 minute. Number of fluoroscopic spot images: 3. Electronically signed by: Kwadwo Zabala M.D. 11/06/2016 9:19 AM Dictated Date/Time: 11/06/2016 9:17 AM
--- NOTE | 2016-11-06 09:23 | Anesthesiology Progress Note ---
Anesthesia Post Op Note Date & Time Nov 06, 2016 at 09:23 Vital Signs Pain Intensity: 0 Vital Signs Past 12 Hours Date Time Temp Pulse Resp B/P (MAP) Pulse Ox O2 Delivery O2 Flow Rate FiO2 11/06/16 09:15 36.3 66 16 128/85 98 Room Air 11/06/16 09:05 68 16 131/83 100 Room Air 11/06/16 08:55 67 16 123/81 100 Room Air 11/06/16 08:48 36.0 76 16 133/89 100 Room Air 11/06/16 06:08 36.7 76 16 134/84 (101) 98 Mechanical Ventilator Notes Mental Status: alert / awake / arousable, participated in evaluation Pt Amnestic to Procedure: Yes Nausea / Vomiting: adequately controlled Pain: adequately controlled Airway Patency, RR, SpO2: stable & adequate BP & HR: stable & adequate Hydration State: stable & adequate Anesthetic Complications: no major complications apparent
[2016-11-06 09:50] VITALS: BP 168/99; PULSE 64; TEMP 36.1; O2SAT 99
[2016-11-06 10:20] VITALS: BP 169/99; PULSE 66; O2SAT 99
[2016-11-06] MEDS ORDERED: MoRPHine SULFATE 2 MG/ML CARP ONE (10:25)
[2016-11-06] MEDS ORDERED: NURSING VERBAL MED ORDER ONE (10:30)
[2016-11-06 10:52] VITALS: BP 169/99; PULSE 71; TEMP 36.8; O2SAT 100
[2016-11-06] MEDS ORDERED: BELLADONNA/OPIUM SUPP 60 MG SUPP PR ONE (11:00)
[2016-11-06] MEDS ORDERED: MoRPHine SULFATE 2 MG/ML CARP IV ONE (11:00)
[2016-11-06 11:20] VITALS: BP 176/99; PULSE 75; O2SAT 100
[2016-11-06 12:00] VITALS: BP 144/92; PULSE 73; TEMP 36.3; O2SAT 100
== END 2016-11-06 12:35 | disposition home or self-care (01) ==
LOC: C.ACU 05:21
PROVIDERS: ATTEND Urology
DX: N20.0 Calculus of kidney (principal); G12.21 Amyotrophic lateral sclerosis; D63.8 Anemia in other chronic diseases classified elsewhere; J96.10 Chronic respiratory failure, unspecified whether with hypoxia or hypercapnia; K21.0 Gastro-esophageal reflux disease with esophagitis; E55.9 Vitamin D deficiency, unspecified; E03.9 Hypothyroidism, unspecified; F41.1 Generalized anxiety disorder; Z43.0 Encounter for attention to tracheostomy; Z99.11 Dependence on respirator [ventilator] status; Z79.899 Other long term (current) drug therapy

== ENCOUNTER → 2016-11-13 | Outpatient (CLI) | payer BC ==
[~2016-11-13] MED LIST changes: +PHEN-775 PO; +TAMS0.4C38 PO
--- NOTE | 2016-11-13 11:39 | DIAGNOSTIC IMAGING REPORT ---
KUB CLINICAL HISTORY: 60 years-old Female presenting with nephrolithiasis. TECHNIQUE: Single supine view of the abdomen was obtained. COMPARISON: 10/30/[address] from 10/17/2016. FINDINGS: There has been interval removal of the right ureteral stent. Left ureteral stent remains in place. Presence of bowel gas and stool degrade evaluation. The large staghorn calculus at the left renal pelvis remains apparent. The previously noted punctate calculus at the right ureterovesical junction is not apparent allowing for the presence of moderate rectal stool burden. Gastrostomy tube is noted. Pacer wires course towards the stomach. Nonobstructive bowel gas pattern. No gross pneumoperitoneum. Osseous structures within normal limits. IMPRESSION: 1. Interval removal of the right ureteral stent. The left ureteral stent remains in place. Large staghorn calculus in the left renal pelvis. The punctate calculus at the right ureterovesical junction is not radiographically apparent, possibly indicating passage. Electronically signed by: Kwadwo Zabala M.D. 11/13/2016 11:38 AM Dictated Date/Time: 11/13/2016 11:35 AM
== END | disposition home or self-care (01) ==
LOC: C.RAD 10:51
PROVIDERS: ATTEND Urology
DX: N20.0 Calculus of kidney (principal)

== ENCOUNTER → 2016-11-29 | Outpatient (CLI) | payer BC ==
[~2016-11-29] MED LIST changes: -PHEN-775 PO
--- NOTE | 2016-11-29 13:49 | DIAGNOSTIC IMAGING REPORT ---
CHEST 2 VIEWS ROUTINE HISTORY: 61 years-old Female R09.3 Increased sputum [id number] symptoms are acute in nature. COMPARISON: Chest radiograph 10/17/2016 TECHNIQUE: Supine AP and lateral views of the chest FINDINGS: The cardiac silhouette is mildly enlarged, unchanged. Tracheostomy cannula is seen overlying the midline at the level of the navicular heads. There is pulmonary vascular congestion with background mild interstitial coarsening. Hazy left basilar opacity is noted. Mild biapical pleural-parenchymal scarring without pneumothorax. There is chronic blunting of the left costophrenic angle. The bones are moderately demineralized. Degenerative changes are seen within the shoulders and spine. IMPRESSION: 1. Cardiomegaly with pulmonary vascular congestion and background interstitial coarsening suggesting mild pulmonary edema. 2. Hazy left basilar opacities suggest atelectasis or pneumonia. The above report was generated using voice recognition software. It may contain grammatical, syntax or spelling errors. Electronically signed by: Nicola Resendiz M.D. 11/29/2016 1:48 PM Dictated Date/Time: 11/29/2016 1:46 PM
== END | disposition home or self-care (01) ==
LOC: C.RAD 12:37
PROVIDERS: ATTEND Physician Assistant
DX: R09.3 Abnormal sputum (principal); J96.10 Chronic respiratory failure, unspecified whether with hypoxia or hypercapnia; I51.7 Cardiomegaly

== ENCOUNTER → 2016-11-29 | Outpatient (CLI) | payer BC ==
--- NOTE | 2016-11-29 13:59 | DIAGNOSTIC IMAGING REPORT ---
KUB HISTORY: Left renal calculus follow-up study. N20.0 Renal calculus, [id number] COMPARISON: KUB 11/13/2016, 10/30/2016, CT 10/17/2016. FINDINGS: The bowel gas pattern is non-obstructive. Gastrostomy tube noted. Pacer wires course towards the stomach. There is no organomegaly. Large left staghorn calculus is again seen measuring up to 3.5 cm in length. No definite ureteral calculi identified. Probable phleboliths of the pelvis redemonstrated. No pneumoperitoneum or pneumatosis. No fracture. IMPRESSION: 1. Unchanged appearance of the large left staghorn calculus without definite ureteral calculi identified. 2. Nonobstructive bowel gas pattern. Electronically signed by: Nicola Resendiz M.D. 11/29/2016 1:57 PM Dictated Date/Time: 11/29/2016 1:53 PM
== END | disposition home or self-care (01) ==
LOC: C.RAD 12:44
PROVIDERS: ATTEND Urology
DX: J96.10 Chronic respiratory failure, unspecified whether with hypoxia or hypercapnia (principal); R09.3 Abnormal sputum; N20.0 Calculus of kidney

== ENCOUNTER → 2017-02-28 | Outpatient (CLI) | payer BC ==
[~2017-02-28] MED LIST changes: +ASCO1CHW PEG; +ASCO500C3 PEG; +CEFD250S2 PO; -CEPH500C2 PO; +CIPR0.3S OP; +DTR5 PEG; +IPRA-64 INH; -IPRASOL4 INH; +LACT1GRA PEG; +LCTXP PO; +LORA-741 PEG; +METO25TA56 PEG; -METO25TA56 PO; +MRLP17 PEG; -OXYB5TAB PO; +POLY335019 PO; +SENN8.8S5 PEG; +SNKUDL10 PO; -TAMS0.4C38 PO; +ZOLP5TAB PEG
--- NOTE | 2017-02-28 16:15 | DIAGNOSTIC IMAGING REPORT ---
CHEST 2 VIEWS ROUTINE CLINICAL HISTORY: J18.9 Pneumonia COMPARISON STUDY: 12/28/2016 FINDINGS: A tracheostomy tube is again visualized. The heart is at the upper limits of normal in size. Evaluation the lung bases is limited due to overlying breast tissue attenuation. There is no lobar consolidation. Linear opacities the left lung base and right midlung zone, are likely atelectatic.[ There is a suspected small right pleural effusion. Multiple electrodes project over the level of the diaphragms. IMPRESSION: Slight improvement in aeration the lung bases. No evidence of lobar consolidation. Suspected small right pleural effusion. Difficult study to interpret due to overlying breast tissue. Electronically signed by: Keny Robertson M.D. 02/28/2017 4:13 PM Dictated Date/Time: 02/28/2017 4:09 PM
== END | disposition home or self-care (01) ==
LOC: C.RAD 15:17
PROVIDERS: ATTEND Physician Assistant
DX: J18.9 Pneumonia, unspecified organism (principal)

== ENCOUNTER → 2017-04-13 | Outpatient (CLI) | payer BC ==
[~2017-04-13] MED LIST changes: -ASCO500C3 PEG; -CEFD250S2 PO; -CIPR0.3S OP; -IPRA-64 INH; +IPRASOL4 INH; -LACT1GRA PEG; -LORA-741 PEG; -POLY335019 PO; -SENN8.8S5 PEG; -ZOLP5TAB PEG
--- NOTE | 2017-04-13 15:11 | DIAGNOSTIC IMAGING REPORT ---
CHEST AND ABDOMEN 2 VIEWS HISTORY: K59.2 Neurogenic bowel [id number] COMPARISON: Chest 02/28/2017. Abdomen and pelvis CT 12/28/2016. FINDINGS: Tracheostomy tube is unchanged in position. No pneumothorax. Left basilar density. Perihilar hazy airspace opacities are noted. A few linear densities within the right midlung zone favor subsegmental atelectasis. No pneumoperitoneum. No pneumatosis. Multiple stimulator leads are noted overlying the diaphragm. A gastrostomy tube is also identified. No dilated loops of bowel to suggest an obstruction. Large stool ball seen within the rectum. This measures 11 cm and is concerning for fecal impaction. Left staghorn renal calculus is again noted. IMPRESSION: 1. No evidence for bowel obstruction. 2. Large stool ball within the rectum measuring 11 cm. This is concerning for fecal impaction. 3. Left basilar densities which may represent atelectasis or pneumonia. 4. Perihilar hazy airspace opacities persist. Electronically signed by: Winston Casiaon M.D. 04/13/2017 3:10 PM Dictated Date/Time: 04/13/2017 3:06 PM
== END ==
LOC: C.RAD 14:23
PROVIDERS: ATTEND Physician Assistant
DX: K59.2 Neurogenic bowel, not elsewhere classified (principal)

== ENCOUNTER → 2017-04-16 | Outpatient (CLI) | payer BC | END | disposition home or self-care (01) | LOC: C.LAB 12:08 | PROVIDERS: ATTEND Urology | DX: N39.0 Urinary tract infection, site not specified (principal) ==

== ENCOUNTER → 2017-05-31 | Outpatient (CLI) | payer BC | END | disposition home or self-care (01) | LOC: C.LABSPEC 11:29 | PROVIDERS: ATTEND Urology | DX: R39.9 Unspecified symptoms and signs involving the genitourinary system (principal); E87.6 Hypokalemia; R30.0 Dysuria; N39.0 Urinary tract infection, site not specified; M25.512 Pain in left shoulder; K59.2 Neurogenic bowel, not elsewhere classified ==

== ENCOUNTER → 2017-06-13 | Outpatient (CLI) | payer BC ==
--- NOTE | 2017-06-13 13:32 | DIAGNOSTIC IMAGING REPORT ---
ABDOMEN 2VIEW W/PA CHEST RTN CLINICAL HISTORY: 61 years-old Female presenting with R19.7 Diarrhea. TECHNIQUE: PA view of the chest and supine and upright views of the abdomen were obtained. COMPARISON: 04/13/2017. FINDINGS: Tracheostomy tube in place, unchanged. An external device projects over the right paramediastinal lung base. Hazy left basilar opacity unchanged. Overall improved aeration of the lung bases in comparison to prior. No new focal opacity. No large effusion or pneumothorax. Small epicardial leads or thin catheter again projects over the upper abdomen and hemidiaphragms. Gastrostomy tube noted. Nonobstructive bowel gas pattern. Previously noted fecal impaction in the rectum has resolved. No gross pneumoperitoneum. Allowing for bowel gas and stool, no calcifications to suggest nephrolithiasis. Mild scoliotic curvature of the thoracolumbar spine. IMPRESSION: 1. Minimal left basilar atelectasis with overall improved aeration of the lung bases in comparison to prior. 2. No radiographic evidence of acute intra-abdominal pathology. No evidence of fecal impaction. Electronically signed by: Kwadwo Zabala M.D. 06/13/2017 1:30 PM Dictated Date/Time: 06/13/2017 1:28 PM
[2017-06-13 14:36] LABS: BASO % 0.4 %; BASO ABS # 0.03 K/uL (0-0.2); EOS % 4.8 %; EOS ABS # 0.33 K/uL (0-0.5); HEMATOCRIT 30.4 % (37-47); HEMOGLOBIN 10.1 g/dL (12.0-16.0); IG# 0.02 K/uL (0.00-0.02); LYMPH % 43.9 %; LYMPH ABS # 3.02 K/uL (1.2-3.4); MEAN CELL VOLUME 92.7 fL (80-100); MEAN CORPUSCULAR HEMOGLOBIN 30.8 pg (25-34); MEAN CORPUSCULAR HGB CONC 33.2 g/dl (32-36); MEAN PLATELET VOLUME 10.5 fL (7.4-10.4); MONO % 5.1 %; MONO ABS # 0.35 K/uL (0.11-0.59); NEUT % 45.5 %; NEUT ABS # 3.13 K/uL (1.4-6.5); PLATELET COUNT 427 K/uL (130-400); RED CELL DISTRIBUTION WIDTH SD 53.7 fL (36.4-46.3); WHITE BLOOD COUNT 6.88 K/uL (4.8-10.8)
[2017-06-13 15:09] LABS: ALBUMIN 2.9 gm/dl (3.4-5.0); ALT/SGPT 29 U/L (12-78); AST/SGOT 29 U/L (15-37); BLOOD UREA NITROGEN 21 mg/dl (7-18); CALCIUM 9.1 mg/dl (8.5-10.1); CARBON DIOXIDE 20 mmol/L (21-32); CREATININE 0.19 mg/dl (0.60-1.20); GLUCOSE 80 mg/dl (70-99); POTASSIUM 3.3 mmol/L (3.5-5.1); SODIUM 135 mmol/L (136-145)
[2017-06-13 15:11] LABS: ALKALINE PHOSPHATASE 194 U/L (45-117); TOTAL PROTEIN 7.3 gm/dl (6.4-8.2)
== END | disposition home or self-care (01) ==
LOC: C.RAD 12:20
PROVIDERS: ATTEND Physician Assistant
DX: R19.7 Diarrhea, unspecified (principal)

== ENCOUNTER → 2017-06-19 | Outpatient (CLI) | payer BC | END | disposition home or self-care (01) | LOC: C.LAB 12:41 | PROVIDERS: ATTEND Urology | DX: N39.0 Urinary tract infection, site not specified (principal); R32 Unspecified urinary incontinence ==

== ENCOUNTER → 2017-07-16 | Outpatient (CLI) | payer BC ==
--- NOTE | 2017-07-16 11:59 | DIAGNOSTIC IMAGING REPORT ---
ULTRASOUND KIDNEYS AND BLADDER CLINICAL HISTORY: Nephrolithiasis. COMPARISON STUDY: Abdominal CT dated 12/28/2016. TECHNIQUE: Real-time, grayscale, and color flow sonography of the kidneys and bladder is performed. Images are reviewed in the transverse and longitudinal planes. FINDINGS: Kidneys: The kidneys are atrophic. The right kidney measures 8.1 cm in length and the left kidney measures 9.5 cm in length. There is no hydronephrosis. A shadowing staghorn calculus is identified in the left kidney. This measures at least 2.9 cm in length. There is no sonographic evidence of contour deforming renal mass lesion. No perinephric fluid is identified. Bladder: The bladder is normal in appearance. Bilateral ureteral jets were seen. Trace free fluid is noted in the cul-de-sac. Upper abdomen: Survey images of the gallbladder shows layering calcified gallstones. IMPRESSION: 1. The kidneys are atrophic and without hydronephrosis. 2. A staghorn calculus is again seen in the left kidney. 3. The bladder is normal as imaged. 4. Cholelithiasis is incidentally noted. 5. Nonspecific free fluid is present in the pelvis. Electronically signed by: Dale Marin M.D. 07/16/2017 11:58 AM Dictated Date/Time: 07/16/2017 11:56 AM
== END | disposition home or self-care (01) ==
LOC: C.ULTR 11:21
PROVIDERS: ATTEND Urology
DX: N20.0 Calculus of kidney (principal); N26.1 Atrophy of kidney (terminal); K80.20 Calculus of gallbladder without cholecystitis without obstruction

== ENCOUNTER 2017-09-17 16:00 | Inpatient (IN) | payer BC, OTHER ==
[~2017-09-17] VITALS: Ht 162.6 cm; Wt 52.9 kg
[~2017-09-17 16:00] MED LIST changes: +IPRA-64 INH; -IPRASOL4 INH
[2017-09-17] MEDS ORDERED: SODIUM CHLORIDE 0.9% 500ML 500 ML IV STA (16:24)
--- NOTE | 2017-09-17 16:43 | EMERGENCY ROOM VISIT NOTE ---
History Report prepared by Charlie: Scott Yoder Under the Supervision of: Dr. Adrián Fitzpatrick M.D. First contact with patient: 16:11 Chief Complaint: LETHARGIC Stated Complaint: EYE [id number] STONES-ALS History of Present Illness The patient is a 61 year old female who presents to the Emergency Room with complaints of constant fatigue beginning five days ago. Per caregiver, the patient has a history of ALS and uses her eyes to communicate as she is nonverbal. She states that the patient has been having eye pain for the last five days. She notes that the patient's eyes have also been red and she has not been able to open them much. She reports that since the patient has not been able to open her eyes, she has not been able to communicate as well as she typically does. She states that the patient went to her PCP and was told that her eyes were red but she notes that they did not look infected. She notes that the patient has been feeling fatigued and has not been able to open her eyes like she has been. She reports that the patient also complains of chills, nausea , dark urine, and urinary incontinence. She states that she is not sure if the patient has been having urinary continence because she is unable to communicate that she needs to go to the bathroom or if it is due to her weakness. She notes that the patient has not had any fever, cough, congestion, vomiting, diarrhea, and blood in her urine. She reports that the patient has a history of reoccurring kidney stones but she states that the patient has not been hospitalized recently. She states that the patient has been using artificial tears for her eyes and she notes that the patient does not use any blood thinners. HPI limited secondary to the patient being nonverbal. Source of History: caregiver History Limited By: other (patient nonverbal) Onset: five days ago Position: other (generalized) Quality: other (fatigue) Timing: constant Associated Symptoms: + chills, + nausea, No fevers, No cough, No vomiting, No diarrhea Note: Per caregiver, the patient has been having red eyes, difficulty opening her eyes dark urine, and urinary incontinence. She states that the patient has not had any congestion or blood in her urine. Review of Systems ROS limited secondary to the patient being nonverbal. Past Medical & Surgical Medical Problems: (1) Acute bronchitis (2) ALS (amyotrophic lateral sclerosis) (3) ALS (amyotrophic lateral sclerosis) (4) Altered mental status (5) Anemia (6) Cerebral contusion (7) Choking episode (8) GERD (gastroesophageal reflux disease) (9) Hypokalemia (10) Hypoxia (11) Kidney disease (12) Kidney stone (13) PNA (pneumonia) (14) Renal calculus or stone (15) Rib pain (16) SOB (shortness of breath) (17) Stomach problems (18) Subarachnoid hemorrhage (19) Traumatic subarachnoid hemorrhage (20) UTI (urinary tract infection) (21) UTI (urinary tract infection) Surgical Problems: (1) History of tonsillectomy (2) Status post emergency tracheotomy for assistance in breathing Family History FH: cancer FH: lung disease FHx: heart disease Hypertension Social History Smoking Status: Never Smoker Alcohol Use: none Drug Use: none Marital Status: Housing Status: lives with family Occupation Status: disabled Current/Historical Medications Scheduled Ascorbic Acid (Vitamin C), 500 MG PEG DAILY Buspirone Hcl (Buspirone Hcl), 10 MG PEG BID Dextromethorphan Hbr-Quinidine (Nuedexta), 10 MG PEG BID Enteral Nutrition Formula (Jevity 1.5 Marlon), 1 CAN PEG UD Estrog Conj/Medryoxyprog Acet (Prempro 0.625MG/2.5MG), 1 TAB PEG HS Ipratropium-Albuterol (Duoneb), 1 TREATMENT INH Q4H Lactobacillus Acidophilus (Lactinex Granules), 1 GM PEG TIDM Lansoprazole (Prevacid Solutab), 30 MG PEG HS Lorazepam (Ativan), 0.5 MG PEG TID Metoprolol Tartrate (Lopressor) (Lopressor), 12.5 MG PEG BID Polyethylene Glycol 3350 (Miralax), 17 GM PO DAILY Riluzole (Riluzole), 50 MG PEG BID Saccharomyces Boulardii (Florastor), 250 MG PEG BID Sennosides (Senna), 10 ML PEG QAM Zolpidem Tartrate (Ambien), 5 MG PEG HS Scheduled PRN Acetaminophen (Tylenol), 325 MG PEG Q6H PRN for Pain Alprazolam (Alprazolam), 0.5 MG PEG Q6H PRN for Anxiety Loratadine (Claritin), 10 MG PEG DAILY PRN for ALLGERIES Ondansetron Hcl (Zofran), 5-8 ML PEG Q6H PRN for Nausea Allergies Coded Allergies: Sulfamethoxazole w/Trimethoprim (Verified Allergy, Intermediate, RASH, ) Physical Exam Vital Signs Date Time Temp Pulse Resp B/P (MAP) Pulse Ox O2 Delivery O2 Flow Rate FiO2 09/17/17 20:06 80 16 128/91 100 Room Air 09/17/17 18:56 87 16 109/77 99 Room Air 09/17/17 18:18 85 16 115/86 96 Mechanical Ventilator 09/17/17 16:44 77 09/17/17 16:07 36.2 78 20 105/79 98 Room Air Physical Exam GENERAL: Awake, alert, fatigued-appearing, in no distress HENT: Normocephalic, atraumatic. Oropharynx with dry mm and otherwise unremarkable EYES: Normal conjunctiva. Sclera non-icteric. NECK: Supple. No nuchal rigidity. FROM. No JVD. Trach site c/d/i RESPIRATORY: Clear to auscultation. CARDIAC: Regular rate, normal rhythm. Extremities warm and well perfused. Pulses equal. ABDOMEN: Soft, non-distended. No tenderness to palpation. No rebound or guarding. No masses. G-tube and prior diaphragmatic stimulator sites c/d/i. RECTAL: Deferred. MUSCULOSKELETAL: Chest examination reveals no tenderness. The back is symmetrical on inspection without obvious abnormality. There is no CVA tenderness to palpation. No joint edema. LOWER EXTREMITIES: Calves are equal size bilaterally and non-tender. No edema. No discoloration. NEURO: Diffuse flaccid paralysis at baseline, with a 1/5 strength in bilateral eyelids, no extraocular muscle movement. SKIN: No rash or jaundice noted. Medical Decision & Procedures ER Provider Diagnostic Interpretation: Radiology results as stated below per my review and radiologist interpretation: CHEST ONE VIEW PORTABLE FINDINGS: Tracheostomy tube in good position. Lungs are considered clear. Plate like atelectasis left base. IMPRESSION: Chronic and postoperative change. No acute process. The above report was generated using voice recognition software. It may contain grammatical, syntax or spelling errors. Electronically signed by: Gonzalo Macario M.D. 09/17/2017 4:51 PM Dictated Date/Time: 09/17/2017 4:51 PM HEAD WITHOUT CONTRAST (CT) Findings: The paranasal sinuses and mastoid air cells are clear. The calvarium and skull base are intact. The ventricles and sulci are within normal limits. There is no mass, hematoma, midline shift, or acute infarct. Moderate atrophy in the temporal lobe region bilaterally. No acute intracranial hemorrhage. Impression: Chronic change. No acute process. The above report was generated using voice recognition software. It may contain grammatical, syntax or spelling errors. Electronically signed by: Gonzalo Macario M.D. 09/17/2017 6:18 PM Dictated Date/Time: 09/17/2017 6:16 PM Laboratory Results Test 09/17/17 00:00 09/17/17 17:31 09/17/17 18:00 Urine Osmolality 195 mOms/kg (500-800) Phosphorus Level 2.4 mg/dl (2.5-4.9) Magnesium Level 2.0 mg/dl (1.8-2.4) Direct Bilirubin 0.8 mg/dl (0-0.2) Troponin I < 0.015 ng/ml (0-0.045) Lipase 118 U/L (73-393) Urine Color DK YELLOW Urine Appearance TURBID (CLEAR) Urine pH 5.0 (4.5-7.5) Urine Specific [place] 1.014 (1.000-1.030) Urine Protein NEG (NEG) Urine Glucose (UA) NEG (NEG) Urine Ketones 1+ (NEG) Urine Occult Blood TRACE (NEG) Urine Nitrite POS (NEG) Urine Bilirubin NEG (NEG) Urine Urobilinogen NEG (NEG) Urine Leukocyte Esterase LARGE (NEG) Urine WBC (Auto) >30 /hpf (0-5) Urine RBC (Auto) 0-4 /hpf (0-4) Urine Hyaline Casts (Auto) /lpf (0-5) Urine Epithelial Cells (Auto) >30 /lpf (0-5) Urine Bacteria (Auto) 4+ (NEG) Urine Pathogenic Casts /lpf (0) Urine Yeast (Auto) (NONE PRSENT) Laboratory results reviewed by me Medications Administered Medications (Trade) Dose Ordered Sig/Ger Route Start Time Stop Time Status Last Admin Dose Admin Sodium Chloride 500 ml @ 999 mls/hr Q31M STAT IV 09/17/17 16:24 09/17/17 16:54 DC 09/17/17 17:19 999 MLS/HR Sodium Chloride 1,000 ml @ 999 mls/hr Q1H1M STAT IV 09/17/17 18:46 09/17/17 19:46 DC 09/17/17 18:52 999 MLS/HR Ceftriaxone Sodium (Rocephin Inj) 1 gm NOW STAT IV 09/17/17 18:46 09/17/17 18:48 DC 09/17/17 18:52 1 GM Potassium Chloride (KCL 10 mEq / WTR) 40 meq NOW STAT IV 09/17/17 18:53 09/17/17 18:54 DC 09/17/17 19:29 40 MEQ ECG Per My Interpretation Indication: weakness Rate (beats per minute): 79 Rhythm: normal sinus Findings: no acute ischemic change, other (Nonspecific ST and T wave abnormalities) ED Course 1611: The patient was evaluated in room C11. A complete history and physical exam was performed. 1851: I spoke to case management. 2005: Upon reexamination, the patient was stable. I discussed the test results and treatment plan with her and her caregiver. I discussed the patient's case with Dr. Jacobo - Hospitalist, [facility] [place]. The patient will be evaluated for further management. Medical Decision I reviewed the patient's past medical history, medications, and the nursing notes as described above. Differential diagnosis: Etiologies such as metabolic, infection, hypo/hyperglycemia, electrolyte abnormalities, cardiac sources, intracerebral event, toxicologic, neurologic, as well as others were entertained. The patient is a 61-year-old woman with a past medical history of severely progressed ALS with diffuse paralysis at baseline excluding her eyelids and eye movements who presents emergency department with worsening discomfort in her eyes in the setting of worsening weakness of her eyelids and eye movements over the past week seen by her PCP today and referred to the ED for evaluation per hpi. On arrival the patient is in no acute distress, afebrile stable vital signs. On exam she exhibits diffuse paralysis throughout her whole body with minimal twitching of eyelids when asked to open them and unable to perform eye movements on command. There is minimal conjunctival injection otherwise anterior chamber is clear. EKG unremarkable. Chest x-ray negative. UA with positive nitrites and WBCs consistent with UTI. CBC within normal limits. Hypokalemia with a sodium of 124 and potassium of 2.7 as well as a metabolic acidosis with a bicarb of 15. BUN/creatinine > 50 suggesting likely prerenal etiology. Osms ordered and pending. CT head unremarkable. Findings reviewed with the patient's daughter at the bedside and agreeable for admission given that her metabolic abnormalities may explain the loss of her normal eyelid and EOM motor function. Will treat UTI with ceftriaxone. Given that the patient otherwise is hemodynamically stable, afebrile with no leukocytosis no need for CT of the abdomen at this time. However, should the patient decline CT abdomen pelvis could be considered given her history of kidney stones. Case was discussed with Dr. Jacobo, [facility] hospitalist, who will evaluate the patient for admission. Medication Reconcilliation Current Medication List: was personally reviewed by me Blood Pressure Screening Patient's blood pressure: Normal blood pressure Blood pressure disposition: Did not require urgent referral Consults Time Called: 1926 Consulting Physician: Dr. Jacobo - Hospitalist, [facility] [place] Returned Call: 2005 I discussed the patient with Dr. Jacobo - he will evaluate the patient for further treatment. Impression Primary Impression: Hyponatremia Additional Impressions: Hypokalemia Generalized weakness Scribe Attestation The scribe's documentation has been prepared under my direction and personally reviewed by me in its entirety. I confirm that the note above accurately reflects all work, treatment, procedures, and medical decision making performed by me. Departure Information Dispostion Being Evaluated By Hospitalist Referrals Jean Christy III, CRNP (PCP) Patient Instructions My [facility] Problem Qualifiers
--- NOTE | 2017-09-17 16:53 | DIAGNOSTIC IMAGING REPORT ---
CHEST ONE VIEW PORTABLE CLINICAL HISTORY: ABDOMINAL PAIN/GI pain COMPARISON STUDY: 06/13/2017 FINDINGS: Tracheostomy tube in good position. Lungs are considered clear. Plate like atelectasis left base. IMPRESSION: Chronic and postoperative change. No acute process. The above report was generated using voice recognition software. It may contain grammatical, syntax or spelling errors. Electronically signed by: Gonzalo Macario M.D. 09/17/2017 4:51 PM Dictated Date/Time: 09/17/2017 4:51 PM
[2017-09-17 17:49] LABS: BASO % 0.5 %; BASO ABS # 0.05 K/uL (0-0.2); EOS % 2.6 %; EOS ABS # 0.24 K/uL (0-0.5); HEMOGLOBIN 11.6 g/dL (12.0-16.0); IG# 0.09 K/uL (0.00-0.02); LYMPH % 41.4 %; LYMPH ABS # 3.77 K/uL (1.2-3.4); MEAN CELL VOLUME 85.6 fL (80-100); MEAN CORPUSCULAR HGB CONC 36.3 g/dl (32-36); MEAN PLATELET VOLUME 9.9 fL (7.4-10.4); MONO % 7.8 %; MONO ABS # 0.71 K/uL (0.11-0.59); NEUT % 46.7 %; NEUT ABS # 4.24 K/uL (1.4-6.5); PLATELET COUNT 453 K/uL (130-400); RED CELL DISTRIBUTION WIDTH CV 15.7 % (11.5-14.5); RED CELL DISTRIBUTION WIDTH SD 48.9 fL (36.4-46.3)
[2017-09-17] MEDS ORDERED: SENN8.8S5 PEG (18:01)
[2017-09-17] MEDS ORDERED: ASCO500C3 PEG (18:01)
[2017-09-17] MEDS ORDERED: POLY335019 PO (18:01)
[2017-09-17] MEDS ORDERED: LACT1GRA PEG (18:01)
[2017-09-17] MEDS ORDERED: ZOLP5TAB PEG (18:02)
[2017-09-17] MEDS ORDERED: LORA-741 PEG (18:02)
[2017-09-17 18:09] LABS: ALBUMIN 2.8 gm/dl (3.4-5.0); ALKALINE PHOSPHATASE 266 U/L (45-117); ALT/SGPT 25 U/L (12-78); AST/SGOT 50 U/L (15-37); BLOOD UREA NITROGEN 9 mg/dl (7-18); CALCIUM 8.6 mg/dl (8.5-10.1); CARBON DIOXIDE 15 mmol/L (21-32); CREATININE 0.15 mg/dl (0.60-1.20); GLUCOSE 80 mg/dl (70-99); LIPASE 118 U/L (73-393); PHOSPHORUS 2.4 mg/dl (2.5-4.9); POTASSIUM 2.7 mmol/L (3.5-5.1); SODIUM 124 mmol/L (136-145); TOTAL PROTEIN 6.8 gm/dl (6.4-8.2)
--- NOTE | 2017-09-17 18:20 | DIAGNOSTIC IMAGING REPORT ---
HEAD WITHOUT CONTRAST (CT) CT DOSE: 537.48 mGy.cm HISTORY: Mental status change h/o ALS diffuse paralysis, loss of eye-lid motor function TECHNIQUE: Multiaxial CT images of the head were performed without the use of intravenous contrast. A dose lowering technique was utilized adhering to the principles of ALARA. Comparison: 02/03/2014 Findings: The paranasal sinuses and mastoid air cells are clear. The calvarium and skull base are intact. The ventricles and sulci are within normal limits. There is no mass, hematoma, midline shift, or acute infarct. Moderate atrophy in the temporal lobe region bilaterally. No acute intracranial hemorrhage. Impression: Chronic change. No acute process. The above report was generated using voice recognition software. It may contain grammatical, syntax or spelling errors. Electronically signed by: Gonzalo Macario M.D. 09/17/2017 6:18 PM Dictated Date/Time: 09/17/2017 6:16 PM
[2017-09-17] MEDS ORDERED: CEFTRIAXONE SOD INJ 1 GM ADDVIAL IV STA (18:46)
[2017-09-17] MEDS ORDERED: SODIUM CHLORIDE 0.9% 1000ML 1,000 ML IV STA (18:46)
[2017-09-17] MEDS ORDERED: POTASSIUM CHLORIDE 10 MEQ / 100ML WTR IV STA (18:53)
--- NOTE | 2017-09-17 20:05 | History and Physical ---
History & Physical Date & Time of Service: Sep 17, 2017 at 20:05 Chief Complaint: Eye Krbk-Ckgepjsmo-Jvvxtt Stones-Als Primary Care Physician: Jean Christy III, CRNP History of Present Illness Source: patient, family, hospital records 61 y/o female with a history of ALS, chronic respiratory failure on ventilation , History of Kidney stones, HTN, generalized anxiety disorder, Anemia of chronic disease, and GERD. History is per daughter as patient is nonverbal. Patient uses eyes at [place] to communicate. Over the last few days, jovan communicated to daughter that her eyes were pain,. She also reports fatigue, weakness, nausea. Daughter denies fevers, chills, abdominal pain, vomting, change in stool. Patient requires straight cath BID. Per daughter she is not completely incontinent of urine. She also report Left flank pain. Patient was seen by primary care doctor (Dr. Valentin Levy) who suggested she come in. Patient arrived afebrile, VSS, Hyponatremic at 124, Hypokalemic at 2.7, Ua consistent with UTI. CT head, CXR unremarkable. She got Rocephin, 1 L bolus x2, 40 meq KCl Past Medical/Surgical History Medical Problems: (1) Acute bronchitis (2) ALS (amyotrophic lateral sclerosis) (3) ALS (amyotrophic lateral sclerosis) (4) Anemia (5) Cerebral contusion (6) Choking episode (7) Eye injury (8) Fecal impaction (9) Fecal impaction (10) GERD (gastroesophageal reflux disease) (11) Hypokalemia (12) Hypoxia (13) Kidney disease (14) Kidney stone (15) PNA (pneumonia) (16) Pneumonia (17) Renal calculus or stone (18) Rib pain (19) SOB (shortness of breath) (20) Stomach problems (21) Subarachnoid hemorrhage (22) Traumatic subarachnoid hemorrhage (23) Urinary tract infection (24) UTI (urinary tract infection) (25) UTI (urinary tract infection) (26) UTI (urinary tract infection) Surgical Problems: (1) History of tonsillectomy (2) Status post emergency tracheotomy for assistance in breathing Family History FH: cancer FH: lung disease FHx: heart disease Hypertension Social History Smoking Status: Never Smoker Smokeless Tobacco Use: No Alcohol Use: none Drug Use: none Marital Status: Housing status: lives with family Occupational Status: disabled Immunizations History of Influenza Vaccine: Yes History of Tetanus Vaccine?: Yes History of Pneumococcal: Yes History of Hepatitis B Vaccine: Unknown Allergies Coded Allergies: Sulfamethoxazole w/Trimethoprim (Verified Allergy, Intermediate, RASH, ) Home Medications Scheduled Ascorbic Acid (Vitamin C), 500 MG PEG DAILY Buspirone Hcl (Buspirone Hcl), 10 MG PEG BID Dextromethorphan Hbr-Quinidine (Nuedexta), 10 MG PEG BID Enteral Nutrition Formula (Jevity 1.5 Marlon), 1 CAN PEG UD Estrog Conj/Medryoxyprog Acet (Prempro 0.625MG/2.5MG), 1 TAB PEG HS Ipratropium-Albuterol (Duoneb), 1 TREATMENT INH Q4H Lactobacillus Acidophilus (Lactinex Granules), 1 GM PEG TIDM Lansoprazole (Prevacid Solutab), 30 MG PEG HS Lorazepam (Ativan), 0.5 MG PEG TID Metoprolol Tartrate (Lopressor) (Lopressor), 12.5 MG PEG BID Polyethylene Glycol 3350 (Miralax), 17 GM PO DAILY Riluzole (Riluzole), 50 MG PEG BID Saccharomyces Boulardii (Florastor), 250 MG PEG BID Sennosides (Senna), 10 ML PEG QAM Zolpidem Tartrate (Ambien), 5 MG PEG HS Scheduled PRN Acetaminophen (Tylenol), 325 MG PEG Q6H PRN for Pain Alprazolam (Alprazolam), 0.5 MG PEG Q6H PRN for Anxiety Loratadine (Claritin), 10 MG PEG DAILY PRN for ALLGERIES Ondansetron Hcl (Zofran), 5-8 ML PEG Q6H PRN for Nausea Review of Systems Constitutional: + weakness, No fever, No chills Eyes: + problem reported (eye irritation) Respiratory: No cough, No sputum, No shortness of breath Cardiovascular: No chest pain, No edema, No palpitations Abdomen: No pain, No nausea, No vomiting, No diarrhea Genitourinary - Female: + urinary incontinence, No dysuria, No hematuria Neurologic: + paralysis, + weakness, + problem reported (ALS) Integumentary: No rash, No itch Physical Exam Vital Signs Date Time Temp Pulse Resp B/P (MAP) Pulse Ox O2 Delivery O2 Flow Rate FiO2 09/17/17 18:56 87 16 109/77 99 Room Air 09/17/17 18:18 85 16 115/86 96 Mechanical Ventilator 09/17/17 16:44 77 09/17/17 16:07 36.2 78 20 105/79 98 Room Air GENERAL: communicates via eye movement, able respond to yes or no questions with eye movement , thin EYE EXAM: normal conjunctiva, PERRL and EOM's grossly intact OROPHARYNX: no exudate, no erythema, lips, buccal mucosa, and tongue normal and mucous membranes are moist NECK: supple, Tracheostomy in place no adenopathy, non-tender LUNGS: Clear to auscultation. Normal chest wall mechanics HEART: no murmurs, S1 normal and S2 normal ABDOMEN: abdomen soft, PEG tube in place, non-tender, normo-active bowel sounds , no masses, no rebound or guarding. SKIN: no rashes and no bruising UPPER EXTREMITIES: upper extremities are grossly normal. LOWER EXTREMITIES: No pitting edema. NEURO EXAM: Diffuse paralysis Upper/Lower extremity ( no different from baseline ), able to raise eyelids, open mouth Diagnostics Laboratory Results Results Past 24 Hours Test 09/17/17 00:00 09/17/17 16:58 09/17/17 17:31 09/17/17 18:00 Range/Units Urine Osmolality 195 500-800 mOms/kg White Blood Count 9.10 4.8-10.8 K/uL Red Blood Count 3.74 4.2-5.4 M/uL Hemoglobin 11.6 12.0-16.0 g/dL Hematocrit 32.0 37-47 % Mean Corpuscular Volume 85.6 80-100 fL Mean Corpuscular Hemoglobin 31.0 25-34 pg Mean Corpuscular Hemoglobin Concent 36.3 32-36 g/dl Platelet Count 453 130-400 K/uL Mean Platelet Volume 9.9 7.4-10.4 fL Neutrophils (%) (Auto) 46.7 % Lymphocytes (%) (Auto) 41.4 % Monocytes (%) (Auto) 7.8 % Eosinophils (%) (Auto) 2.6 % Basophils (%) (Auto) 0.5 % Neutrophils # (Auto) 4.24 1.4-6.5 K/uL Lymphocytes # (Auto) 3.77 1.2-3.4 K/uL Monocytes # (Auto) 0.71 0.11-0.59 K/uL Eosinophils # (Auto) 0.24 0-0.5 K/uL Basophils # (Auto) 0.05 0-0.2 K/uL RDW Standard Deviation 48.9 36.4-46.3 fL RDW Coefficient of Variation 15.7 11.5-14.5 % Immature Granulocyte % (Auto) 1.0 % Immature Granulocyte # (Auto) 0.09 0.00-0.02 K/uL Sodium Level 124 136-145 mmol/L Potassium Level 2.7 3.5-5.1 mmol/L Chloride Level 93 98-107 mmol/L Carbon Dioxide Level 15 21-32 mmol/L Anion Gap 16.0 3-11 mmol/L Blood Urea Nitrogen 9 7-18 mg/dl Creatinine 0.15 0.60-1.20 mg/dl Estimated GFR () > 150.0 Estimated GFR (Non- > 150.0 BUN/Creatinine Ratio 57.8 10-20 Random Glucose 80 70-99 mg/dl Calcium Level 8.6 8.5-10.1 mg/dl Phosphorus Level 2.4 2.5-4.9 mg/dl Magnesium Level 2.0 1.8-2.4 mg/dl Total Bilirubin 1.4 0.2-1 mg/dl Direct Bilirubin 0.8 0-0.2 mg/dl Aspartate Amino Transf (AST/SGOT) 50 15-37 U/L Alanine Aminotransferase (ALT/SGPT) 25 12-78 U/L Alkaline Phosphatase 266 45-117 U/L Troponin I < 0.015 0-0.045 ng/ml Total Protein 6.8 6.4-8.2 gm/dl Albumin 2.8 3.4-5.0 gm/dl Lipase 118 73-393 U/L Urine Color DK YELLOW Urine Appearance TURBID CLEAR Urine pH 5.0 4.5-7.5 Urine Specific [place] 1.014 1.000-1.030 Urine Protein NEG NEG Urine Glucose (UA) NEG NEG Urine Ketones 1+ NEG Urine Occult Blood TRACE NEG Urine Nitrite POS NEG Urine Bilirubin NEG NEG Urine Urobilinogen NEG NEG Urine Leukocyte Esterase LARGE NEG Urine WBC (Auto) >30 0-5 /hpf Urine RBC (Auto) 0-4 0-4 /hpf Urine Hyaline Casts (Auto) 0-5 /lpf Urine Epithelial Cells (Auto) >30 0-5 /lpf Urine Bacteria (Auto) 4+ NEG Urine Pathogenic Casts 0 /lpf Urine Yeast (Auto) NONE PRSENT Test 09/17/17 18:46 09/17/17 19:02 Range/Units Microbiology Results 09/17/17 Urine Culture, Received Pending Impression Assessment and Plan 61 y/o female with a history of ALS, chronic respiratory failure s/p tracheostomy, History of Kidney stones, HTN, generalized anxiety disorder, Anemia of chronic disease, and GERD presenting with encephalopathy UTI, Flank pain - UA suspicious for UTI. Previous urine cxs - Urine cx from 08/23/17 is pansensitive - may be contributor to altered mental status - Given flank pain, trace blood on UA, history of kidney stones, will order Renal U/S, Consider CT for stone r/o if needed - Given Rocephin in ED - Continue Rocephin daily Hyponatremia - asymptomatic, Na 124 on arrival, does not appear to be chronic - etiology unclear , likely contributor to mental status change - Hyponatremic at 124 on arrival - Urine Osmolality of 195. F/u serum osm - Fluid restrict at this point, Reassess in AM Encephalopathy - nonverbal at baseline, worsening fatigue, increase difficulty in communicating - possibly infectious etiology given UTI vs Hyponatremia - Continue to monitor - Treat UTI ad above Hypokalemia - given 40 meq KCl in ED - Replete via Peg tube - F/u repeat BMP Elevated Alk Phos, Hyperbilirubinemia - elevated from baseline, no GI complaints, abdominal exam benign - U/S Abdomen - GI consulted Chronic respiratory failure - s/p tracheostomy - uses [facility] ventilator HTN - BP controlled - Metoprolol at home dose Anemia of Chronic disease - within baseline, -check daily cbc GERD - PPI ALS - diffuse paralysis , communicates with eye movement - Continue Riluzole Anxiety: - Held Xanax, Ativan - Continue to monitor Disposition: Admit to Tele Diet: Nutrition via peg tube DVT PPX: Heparin sq Code status: FULL Attending addendum: I have physically seen this patient, have supervised the medical residents activities, and agree with the H&P unless as otherwise noted. Assessment and Plan: Recurrent urinary tract infection/history of kidney stones-- Start ceftriaxone 1 g IV daily. Order renal/ureter/bladder ultrasound to assess for possible kidney stones. Follow urine culture and sensitivity report. Hyponatremia with hypoosmolality-- Sodium level 124. Serum osmolality 264, urine osmolality 195. Hold any fluid boluses via PEG. 1500 cc fluid restriction. Follow serial laboratories. ALS/metabolic encephalopathy-- Treat acute UTI and hyponatremia as above. Continue Riluzole. Remainder of orders and notations as above. Resuscitation Status VTE Prophylaxis Will order VTE Prophylaxis: Yes Note Total Time: Critical Care 30 - 74 minutes Resident Tracking Resident Involvement: Resident Care Provided Care Provided: Adult Hospital Medicine
[2017-09-17] MEDS ORDERED: ACETAMINOPHEN 325 MG TAB PO PRN (20:30)
[2017-09-17] MEDS ORDERED: ONDANSETRON INJ 2 MG/ML 2 ML VIAL IV PRN (20:30)
[2017-09-17 22:00] VITALS: BP 139/93; PULSE 76; TEMP 36.4; O2SAT 100; BMI 19.9
[2017-09-17] MEDS ORDERED: HEPARIN SOD 5000 UNIT/0.5 ML CARP SQ SCH (22:00)
[2017-09-17] MEDS: METOPROLOL TARTRATE 25 MG TAB PEG SCH (23:19)
[2017-09-17] MEDS: SACCHAROMYCES BOUL (FLORASTOR) 250 MG CAP PEG SCH (23:19)
[2017-09-17] MEDS: LANSOPRAZOLE SOLUTAB 30 MG PEG SCH (23:20)
[2017-09-17 23:25] VITALS: BP 128/87; PULSE 68; TEMP 36.6; O2SAT 100
[2017-09-18] VITALS (10 sets, daily range): BP systolic 87–134; BP diastolic 66–98; PULSE 56–65; TEMP 36.1–36.4; O2SAT 97–100; Ht 162.6 cm; Wt 52.9 kg
[2017-09-18] MEDS: POTASSIUM CHLORIDE 20 MEQ/15 ML UDC PEG SCH ×2 (00:50→02:15)
--- NOTE | 2017-09-18 06:57 | Family Medicine Progress Note ---
Progress Note Date of Service Sep 18, 2017. Subjective Pt evaluation today including: conversation w/ patient, physical exam, chart review, lab review 61 y/o female with a history of ALS, chronic respiratory failure on ventilation , History of Kidney stones, HTN, generalized anxiety disorder, Anemia of chronic disease, and GERD. History is per daughter as patient is nonverbal. Patient uses eyes at [place] to communicate. Over the last few days, jovan communicated to daughter that her eyes were pain,. She also reports fatigue, weakness, nausea. Daughter denies fevers, chills, abdominal pain, vomting, change in stool. Patient requires straight cath BID. Per daughter she is not completely incontinent of urine. She also report Left flank pain. Patient was seen by primary care doctor (Dr. Valentin Levy) who suggested she come in. Patient arrived afebrile, VSS, Hyponatremic at 124, Hypokalemic at 2.7, Ua consistent with UTI. CT head, CXR unremarkable. She got Rocephin, 1 L bolus x2, 40 meq KCl Medications Current Inpatient Medications Medications (Trade) Dose Ordered Sig/Ger Route Start Time Stop Time Status Last Admin Dose Admin Heparin Sodium (Porcine) (Heparin Sq 5000 Unit/0.5ml) 5,000 unit Q8 SQ 09/17/17 22:00 10/17/17 21:59 UNV Acetaminophen (Tylenol Tab) 650 mg Q4H PRN PO 09/17/17 20:30 10/17/17 20:29 Ondansetron HCl (Zofran Inj) 4 mg Q6H PRN IV 09/17/17 20:30 10/17/17 20:29 Ceftriaxone Sodium 2000 mg/ Dextrose 70 ml @ 100 mls/hr Q24H IV 09/18/17 19:00 09/22/17 18:59 Lactobacillus Acidophilus (Lactinex Granules Pack) 1 gm TIDM PEG 09/18/17 07:30 10/18/17 07:59 Lansoprazole (Prevacid Solutab) 30 mg HS PEG 09/17/17 21:00 10/17/17 20:59 09/17/17 23:20 30 MG Metoprolol Tartrate (Lopressor Tab) 12.5 mg BID PEG 09/17/17 21:00 10/17/17 20:59 09/17/17 23:19 12.5 MG Saccharomyces Boulardii (Florastor Cap) 250 mg BID PEG 09/17/17 21:00 10/17/17 20:59 09/17/17 23:19 250 MG Senna (Senokot Syrup) 17.6 mg QAM PEG 09/18/17 09:00 10/18/17 08:59 Miscellaneous Information (Order Awaiting Action) 1 ea QS N/A 09/18/17 00:00 10/18/17 00:00 Miscellaneous Information (Order Awaiting Action) 1 ea QS N/A 09/18/17 00:00 10/18/17 00:00 Miscellaneous Information (Order Awaiting Action) 1 ea QS N/A 09/18/17 00:00 10/18/17 00:00 Objective Vital Signs Date Time Temp Pulse Resp B/P (MAP) Pulse Ox O2 Delivery O2 Flow Rate FiO2 09/18/17 04:29 36.2 65 16 134/98 (110) 97 Trach Collar 09/18/17 03:23 21 09/18/17 00:50 100 Trach Collar 09/17/17 23:25 36.6 68 22 128/87 (101) 100 Trach Collar 09/17/17 22:00 36.4 76 16 139/93 100 Mechanical Ventilator 24 09/17/17 21:36 74 16 118/94 96 09/17/17 20:52 74 09/17/17 20:06 80 16 128/91 100 Room Air 09/17/17 18:56 87 16 109/77 99 Room Air 09/17/17 18:18 85 16 115/86 96 Mechanical Ventilator 09/17/17 16:44 77 09/17/17 16:07 36.2 78 20 105/79 98 Room Air Laboratory Results Results Past 24 Hours Test 09/17/17 17:31 09/17/17 18:00 09/17/17 21:20 09/17/17 21:34 Range/Units White Blood Count 9.10 4.8-10.8 K/uL Red Blood Count 3.74 4.2-5.4 M/uL Hemoglobin 11.6 12.0-16.0 g/dL Hematocrit 32.0 37-47 % Mean Corpuscular Volume 85.6 80-100 fL Mean Corpuscular Hemoglobin 31.0 25-34 pg Mean Corpuscular Hemoglobin Concent 36.3 32-36 g/dl Platelet Count 453 130-400 K/uL Mean Platelet Volume 9.9 7.4-10.4 fL Neutrophils (%) (Auto) 46.7 % Lymphocytes (%) (Auto) 41.4 % Monocytes (%) (Auto) 7.8 % Eosinophils (%) (Auto) 2.6 % Basophils (%) (Auto) 0.5 % Neutrophils # (Auto) 4.24 1.4-6.5 K/uL Lymphocytes # (Auto) 3.77 1.2-3.4 K/uL Monocytes # (Auto) 0.71 0.11-0.59 K/uL Eosinophils # (Auto) 0.24 0-0.5 K/uL Basophils # (Auto) 0.05 0-0.2 K/uL RDW Standard Deviation 48.9 36.4-46.3 fL RDW Coefficient of Variation 15.7 11.5-14.5 % Immature Granulocyte % (Auto) 1.0 % Immature Granulocyte # (Auto) 0.09 0.00-0.02 K/uL Sodium Level 124 136-145 mmol/L Potassium Level 2.7 3.5-5.1 mmol/L Chloride Level 93 98-107 mmol/L Carbon Dioxide Level 15 21-32 mmol/L Anion Gap 16.0 3-11 mmol/L Blood Urea Nitrogen 9 7-18 mg/dl Creatinine 0.15 0.60-1.20 mg/dl Estimated GFR () > 150.0 Estimated GFR (Non- > 150.0 BUN/Creatinine Ratio 57.8 10-20 Random Glucose 80 70-99 mg/dl Calcium Level 8.6 8.5-10.1 mg/dl Phosphorus Level 2.4 2.5-4.9 mg/dl Magnesium Level 2.0 1.8-2.4 mg/dl Total Bilirubin 1.4 0.2-1 mg/dl Direct Bilirubin 0.8 0-0.2 mg/dl Aspartate Amino Transf (AST/SGOT) 50 15-37 U/L Alanine Aminotransferase (ALT/SGPT) 25 12-78 U/L Alkaline Phosphatase 266 45-117 U/L Troponin I < 0.015 0-0.045 ng/ml Total Protein 6.8 6.4-8.2 gm/dl Albumin 2.8 3.4-5.0 gm/dl Lipase 118 73-393 U/L Urine Color DK YELLOW Urine Appearance TURBID CLEAR Urine pH 5.0 4.5-7.5 Urine Specific [place] 1.014 1.000-1.030 Urine Protein NEG NEG Urine Glucose (UA) NEG NEG Urine Ketones 1+ NEG Urine Occult Blood TRACE NEG Urine Nitrite POS NEG Urine Bilirubin NEG NEG Urine Urobilinogen NEG NEG Urine Leukocyte Esterase LARGE NEG Urine WBC (Auto) >30 0-5 /hpf Urine RBC (Auto) 0-4 0-4 /hpf Urine Hyaline Casts (Auto) 0-5 /lpf Urine Epithelial Cells (Auto) >30 0-5 /lpf Urine Bacteria (Auto) 4+ NEG Urine Pathogenic Casts 0 /lpf Urine Yeast (Auto) NONE PRSENT Osmolality 264 280-300 mOsm/kg Venous Blood pH 7.44 7.36-7.41 Venous Blood Partial Pressure CO2 28 38.0-50.0 mmHg Venous Blood Partial Pressure O2 27 mmHg Venous Blood HCO3 18 mmol/L Venous Blood Oxygen Saturation < 60.0 % Venous Blood Base Excess -4.5 mEq/L Lyme Disease IgG Antibody NEG NEG Lyme Disease IgM Antibody NEG NEG Hepatitis C Antibody Screen NEG NEG Test 09/18/17 04:44 Range/Units Microbiology Results 09/17/17 Urine Culture, Received Pending Assessment and Plan 61 y/o female with a history of ALS, chronic respiratory failure s/p tracheostomy, History of Kidney stones, HTN, generalized anxiety disorder, Anemia of chronic disease, and GERD presenting with encephalopathy UTI, Flank pain - UA suspicious for UTI. Previous urine cxs - Urine cx from 08/23/17 is pansensitive - may be contributor to altered mental status - Given flank pain, trace blood on UA, history of kidney stones, will order Renal U/S, Consider CT for stone r/o if needed - Given Rocephin in ED - Continue Rocephin daily Hyponatremia - asymptomatic, Na 124 on arrival, does not appear to be chronic - etiology unclear , likely contributor to mental status change - Hyponatremic at 124 on arrival - Urine Osmolality of 195. F/u serum osm - Fluid restrict at this point, Reassess in AM Encephalopathy - nonverbal at baseline, worsening fatigue, increase difficulty in communicating - possibly infectious etiology given UTI vs Hyponatremia - Continue to monitor - Treat UTI ad above Hypokalemia - given 40 meq KCl in ED - Replete via Peg tube - F/u repeat BMP Elevated Alk Phos, Hyperbilirubinemia - elevated from baseline, no GI complaints, abdominal exam benign - U/S Abdomen - GI consulted Chronic respiratory failure - s/p tracheostomy - uses [facility] ventilator HTN - BP controlled - Metoprolol at home dose Anemia of Chronic disease - within baseline, -check daily cbc GERD - PPI ALS - diffuse paralysis , communicates with eye movement - Continue Riluzole Anxiety: - Held Xanax, Ativan - Continue to monitor Disposition: Admit to Tele Diet: Nutrition via peg tube DVT PPX: Heparin sq Code status: FULL Resident Physician Supervision Note: I interviewed and examined the patient. Discussed with Dr. Shields and agree with findings and plan as documented in the note. Any exceptions or clarifications are listed here: None Documented By: Lenny Ulloa not really feeling better yet. family communicates well with her, although she does give facial expressions taht show that she seems to be following conversation well vitals noted fatigued appearing eyes w injected conjunctiva and thin discharge minimal exudate no chemosis AMS/probable sepsis -ssupect viral illness initially (hence conjunctiviits that appears viral) and since staghorn present, once immune system "distracted" (relative compromise) w viral illness, UTI/pyelo type picture ensued, and hyponatremia ensued from there -improving - continue current care, await further cx results supportive care
--- NOTE | 2017-09-18 07:18 | DIAGNOSTIC IMAGING REPORT ---
ABDOMEN COMPLETE (US) CLINICAL HISTORY: Left flank pain. Elevated liver function tests. COMPARISON STUDY: Renal ultrasound July 16, [address] of the abdomen and pelvis August 13, 2017. FINDINGS: Liver morphology is normal. No hepatic lesions are identified. There is no biliary ductal dilatation. Sludge and stones are noted within the gallbladder. Sonographic Lagunas sign could not be assessed for given altered mental status. There is no gallbladder wall thickening. There is no pericholecystic fluid. The pancreas is within normal limits by sonography. The size of the spleen is normal. The caliber of the abdominal aorta is normal. There is no right hydronephrosis. Renal cortical thinning is noted. Both ureteral jets were identified. Left renal staghorn calculus is again noted. Mild left collecting system dilatation is likely similar to CT of August 13, 2017. IMPRESSION: 1. Redemonstration of a left renal staghorn calculus with mild collecting system dilatation which is similar to CT of August 13, 2017. Left ureteral jet identified. 2. Cholelithiasis and sludge within the gallbladder without gallbladder wall thickening or pericholecystic fluid. 3. No biliary ductal dilatation. Electronically signed by: Lalito Pike M.D. 09/18/2017 7:17 AM Dictated Date/Time: 09/18/2017 7:11 AM
[2017-09-18 07:57] LABS: INR 1.1 (0.9-1.1); PTT PATIENT 27.3 SECONDS (21.0-31.0)
[2017-09-18 07:58] LABS: BASO % 0.5 %; BASO ABS # 0.05 K/uL (0-0.2); EOS % 4.1 %; EOS ABS # 0.38 K/uL (0-0.5); HEMOGLOBIN 11.7 g/dL (12.0-16.0); IG# 0.12 K/uL (0.00-0.02); LYMPH % 31.3 %; LYMPH ABS # 2.89 K/uL (1.2-3.4); MEAN CELL VOLUME 87.3 fL (80-100); MEAN CORPUSCULAR HGB CONC 35.5 g/dl (32-36); MEAN PLATELET VOLUME 10.3 fL (7.4-10.4); MONO % 6.7 %; MONO ABS # 0.62 K/uL (0.11-0.59); NEUT % 56.1 %; NEUT ABS # 5.17 K/uL (1.4-6.5); PLATELET COUNT 493 K/uL (130-400); RED CELL DISTRIBUTION WIDTH CV 16.2 % (11.5-14.5); RED CELL DISTRIBUTION WIDTH SD 51.3 fL (36.4-46.3); WHITE BLOOD COUNT 9.23 K/uL (4.8-10.8)
--- NOTE | 2017-09-18 08:34 | Clinical Documentation Query ---
JESSIE Orozco : CLINICAL DOCUMENTATION QUERY Patient is a 61 year old female with a history of ALS, noted to use her eyes at baseline to communicate as she is non-verbal. Noted is "diffuse paralysis". Nursing noted all activities require assistance. As appropriate, consider this paralysis as a consequence of ALS as suggested below in order to capture the severity of illness and associated risk of mortality. In your clinical opinion is this patient being managed for: ( X) Functional quadriplegia ( ) Not Agree ( ) Other explanation of clinical findings (No explanation is considered a No Response) ( ) Unable to determine ( ) Need to Discuss (Phone CDS or qliq) (No discussion is considered a No Response) The medical record reflects the following clinical findings, treatment, and risk factors. Clinical Indicators: As above Treatment: Total care Risk Factors: ALS Please clarify and document your clinical opinion in the progress notes and discharge summary. Terms such as "probable", "suspected", "likely", "questionable", "possible", or "still to be ruled out" are acceptable. IF IN AGREEMENT, YOU MUST DOCUMENT ABOVE DIAGNOSTIC STATEMENT IN DAILY PROGRESS NOTES AND DISCHARGE SUMMARY. This document is not part of the patient's record. Thank You, Sotero Mcdaniel, TAYLOR [phone]
[2017-09-18 08:51] LABS: ALBUMIN 2.6 gm/dl (3.4-5.0); ALKALINE PHOSPHATASE 234 U/L (45-117); ALT/SGPT 25 U/L (12-78); AST/SGOT 50 U/L (15-37); BLOOD UREA NITROGEN 6 mg/dl (7-18); CARBON DIOXIDE 15 mmol/L (21-32); CREATININE < 0.15 mg/dl (0.60-1.20); GLUCOSE 73 mg/dl (70-99); POTASSIUM 4.7 mmol/L (3.5-5.1); SODIUM 134 mmol/L (136-145); TOTAL PROTEIN 6.6 gm/dl (6.4-8.2)
--- NOTE | 2017-09-18 09:37 | Gastrointestinal Consultation ---
Gastrointestinal Consultation Date of Consultation: Sep 18, 2017 Attending Physician: Dr. Ulloa Consulting Physician: Kassie Levin PA-C Reason for Consultation: Elevated alkaline phosphotase & elevated bilirubin History of Present Illness Patient is a 61 year old female with a past medical history of ALS, anemia of chronic disease, chronic respiratory failure with ventilation dependence, GERD, nephrolithiasis, chronic constipation, subarachnoid hemorrhage, UTIs, on tube feeds via PEG, and generalized anxiety disorder. The patient presented with encephalopathy. GI has been consulted for further evaluation of elevated alkaline phosphatase and elevated bilirubin. Upon review of her complete metabolic panel, it appears that her Alk phos is elevated at 266. Her total bilirubin is mildly elevated at 1.4 and direct bilirubin is elevated at 0.8. She has had an ultrasound of the RUQ that indicated cholelithiasis and gallbladder sludge without evidence of acute cholecystitis. There were no ductal abnormalities noted on ultrasound. Family is at bedside to assist with history. The patient has no reported abdominal pain or fevers. There has been no report of nausea, vomiting, or diarrhea. Constipation is a chronic struggle. The patient had previously been scheduled to see a motility specialist at [place] due to the complexity of her care. There is no family history of liver disease. The patient is presently being treated with antibiotics for a UTI thought to be contributing to encephalopathy. Past Medical/Surgical History Medical Problems: (1) Eye injury Status: Acute (2) Fecal impaction Status: Acute (3) Fecal impaction Status: Acute (4) Generalized weakness Status: Acute (5) Hypokalemia Status: Acute (6) Hyponatremia Status: Acute (7) Pneumonia Status: Acute (8) Urinary tract infection Status: Acute (9) UTI (urinary tract infection) Status: Acute Past Medical History: ALS, anemia of chronic disease, chronic respiratory failure with ventilation dependence, GERD, nephrolithiasis, chronic constipation, subarachnoid hemorrhage , UTIs, on tube feeds via PEG, and generalized anxiety disorder Past Surgical History: Tonsillectomy, tracheotomy, PEG placement Family History FH: cancer FH: lung disease FHx: heart disease Hypertension Social History Smoking Status: Never Smoker Alcohol Use: none Drug Use: none Marital Status: Housing Status: lives with family Occupation Status: disabled Allergies Coded Allergies: Sulfamethoxazole w/Trimethoprim (Verified Allergy, Intermediate, RASH, ) Current Medications Home Meds and Scripts Medications Dose Route/Sig Max Daily Dose Days Date Category Ativan (Lorazepam) 0.5 Mg Tab 0.5 Mg PEG TID 09/17/17 Reported Ambien (Zolpidem Tartrate) 5 Mg Tab 5 Mg PEG HS 09/17/17 Reported Senna (Sennosides) 8.8 Mg/5 Ml Syp 10 Ml PEG QAM 09/17/17 Reported Miralax (Polyethylene Glycol 3350) 1 Pow Pow 17 Gm PO DAILY 09/17/17 Reported Lactinex Granules (Lactobacillus Acidophilus) 1 Gm Pkt 1 Gm PEG TIDM 09/17/17 Reported Vitamin C (Ascorbic Acid) 500 Mg Chw 500 Mg PEG DAILY 09/17/17 Reported Prempro 0.625MG/2.5MG (Estrogens Conj/Medroxyprogest Acet) Tab 1 Tab PEG HS 10/17/16 Reported Lopressor (Metoprolol Tartrate) 25 Mg Tab 12.5 Mg PEG BID 10/17/16 Reported Jevity 1.5 Marlon (Enteral Nutritional Formula) 1 Can Liqd 1 Can PEG UD 10/17/16 Reported Duoneb (Ipratropium-Albuterol) 3 Ml Nebu 1 Treatment INH Q4H 10/17/16 Reported Buspirone Hcl 10 Mg Tab 10 Mg PEG BID 10/17/16 Reported Alprazolam 0.5 Mg Tab 0.5 Mg PEG Q6H PRN 10/03/16 Reported Zofran (Ondansetron HCl) 4 Mg/5 Ml Syrp 5-8 Ml PEG Q6H PRN 10/03/16 Reported Claritin (Loratadine) 10 Mg Tab 10 Mg PEG DAILY PRN 06/12/16 Reported Prevacid Solutab (Lansoprazole) 30 Mg Soco 30 Mg PEG HS 06/12/16 Reported Tylenol (Acetaminophen) 325 Mg Tab 325 Mg PEG Q6H PRN 07/27/15 Reported Nuedexta (Dextromethorphan Hbr-Quinidine) 1 Cap Cap 10 Mg PEG BID 09/29/14 Reported Florastor (Saccharomyces Boulardii) 250 Mg Cap 250 Mg PEG BID 08/11/14 Reported Riluzole 50 Mg Tab 50 Mg PEG BID 02/02/14 Reported Review of Systems Constitutional: + fatigue, No fever Eyes: No problem reported Respiratory: No problem reported Cardiac: No problem reported Abdomen: No pain, No nausea, No vomiting, No diarrhea Musculoskeletal: No problem reported Neuro: + problem reported (confusion) Psych: No problem reported Endo: + fatigue Skin: No problem reported Physical Exam Date Time Temp Pulse Resp B/P (MAP) Pulse Ox O2 Delivery O2 Flow Rate FiO2 09/18/17 06:58 36.3 62 16 120/90 (100) 98 Trach Collar 09/18/17 04:29 36.2 65 16 134/98 (110) 97 Trach Collar 09/18/17 03:23 21 09/18/17 00:50 100 Trach Collar 09/17/17 23:25 36.6 68 22 128/87 (101) 100 Trach Collar 09/17/17 22:00 36.4 76 16 139/93 100 Mechanical Ventilator 24 09/17/17 21:36 74 16 118/94 96 09/17/17 20:52 74 09/17/17 20:06 80 16 128/91 100 Room Air 09/17/17 18:56 87 16 109/77 99 Room Air 09/17/17 18:18 85 16 115/86 96 Mechanical Ventilator 09/17/17 16:44 77 09/17/17 16:07 36.2 78 20 105/79 98 Room Air General Appearance: no apparent distress Eyes: normal inspection Respiratory/Chest: normal breath sounds Cardiovascular: regular rate, rhythm Abdomen: normal bowel sounds, non tender, soft, + pertinent finding (PEG in place) Extremities: non-tender Neurologic/Psych: alert Skin: normal color Laboratory Results Last 24 Hours Test 09/17/17 17:31 09/17/17 18:00 09/17/17 21:20 09/17/17 21:34 White Blood Count 9.10 K/uL Red Blood Count 3.74 M/uL Hemoglobin 11.6 g/dL Hematocrit 32.0 % Mean Corpuscular Volume 85.6 fL Mean Corpuscular Hemoglobin 31.0 pg Mean Corpuscular Hemoglobin Concent 36.3 g/dl Platelet Count 453 K/uL Mean Platelet Volume 9.9 fL Neutrophils (%) (Auto) 46.7 % Lymphocytes (%) (Auto) 41.4 % Monocytes (%) (Auto) 7.8 % Eosinophils (%) (Auto) 2.6 % Basophils (%) (Auto) 0.5 % Neutrophils # (Auto) 4.24 K/uL Lymphocytes # (Auto) 3.77 K/uL Monocytes # (Auto) 0.71 K/uL Eosinophils # (Auto) 0.24 K/uL Basophils # (Auto) 0.05 K/uL RDW Standard Deviation 48.9 fL RDW Coefficient of Variation 15.7 % Immature Granulocyte % (Auto) 1.0 % Immature Granulocyte # (Auto) 0.09 K/uL Sodium Level 124 mmol/L Potassium Level 2.7 mmol/L Chloride Level 93 mmol/L Carbon Dioxide Level 15 mmol/L Anion Gap 16.0 mmol/L Blood Urea Nitrogen 9 mg/dl Creatinine 0.15 mg/dl Estimated GFR () > 150.0 Estimated GFR (Non- > 150.0 BUN/Creatinine Ratio 57.8 Random Glucose 80 mg/dl Calcium Level 8.6 mg/dl Phosphorus Level 2.4 mg/dl Magnesium Level 2.0 mg/dl Total Bilirubin 1.4 mg/dl Direct Bilirubin 0.8 mg/dl Aspartate Amino Transf (AST/SGOT) 50 U/L Alanine Aminotransferase (ALT/SGPT) 25 U/L Alkaline Phosphatase 266 U/L Troponin I < 0.015 ng/ml Total Protein 6.8 gm/dl Albumin 2.8 gm/dl Lipase 118 U/L Urine Color DK YELLOW Urine Appearance TURBID Urine pH 5.0 Urine Specific [place] 1.014 Urine Protein NEG Urine Glucose (UA) NEG Urine Ketones 1+ Urine Occult Blood TRACE Urine Nitrite POS Urine Bilirubin NEG Urine Urobilinogen NEG Urine Leukocyte Esterase LARGE Urine WBC (Auto) >30 /hpf Urine RBC (Auto) 0-4 /hpf Urine Hyaline Casts (Auto) /lpf Urine Epithelial Cells (Auto) >30 /lpf Urine Bacteria (Auto) 4+ Urine Pathogenic Casts /lpf Urine Yeast (Auto) Osmolality 264 mOsm/kg Venous Blood pH 7.44 Venous Blood Partial Pressure CO2 28 mmHg Venous Blood Partial Pressure O2 27 mmHg Venous Blood HCO3 18 mmol/L Venous Blood Oxygen Saturation < 60.0 % Venous Blood Base Excess -4.5 mEq/L Lyme Disease IgG Antibody NEG Lyme Disease IgM Antibody NEG Hepatitis C Antibody Screen NEG Test 09/18/17 07:13 09/18/17 09:15 White Blood Count 9.23 K/uL Red Blood Count 3.78 M/uL Hemoglobin 11.7 g/dL Hematocrit 33.0 % Mean Corpuscular Volume 87.3 fL Mean Corpuscular Hemoglobin 31.0 pg Mean Corpuscular Hemoglobin Concent 35.5 g/dl Platelet Count 493 K/uL Mean Platelet Volume 10.3 fL Neutrophils (%) (Auto) 56.1 % Lymphocytes (%) (Auto) 31.3 % Monocytes (%) (Auto) 6.7 % Eosinophils (%) (Auto) 4.1 % Basophils (%) (Auto) 0.5 % Neutrophils # (Auto) 5.17 K/uL Lymphocytes # (Auto) 2.89 K/uL Monocytes # (Auto) 0.62 K/uL Eosinophils # (Auto) 0.38 K/uL Basophils # (Auto) 0.05 K/uL RDW Standard Deviation 51.3 fL RDW Coefficient of Variation 16.2 % Immature Granulocyte % (Auto) 1.3 % Immature Granulocyte # (Auto) 0.12 K/uL Prothrombin Time 11.1 SECONDS Prothromb Time International Ratio 1.1 Activated Partial Thromboplast Time 27.3 SECONDS Partial Thromboplastin Ratio 1.1 Sodium Level 134 mmol/L Potassium Level 4.7 mmol/L Chloride Level 107 mmol/L Carbon Dioxide Level 15 mmol/L Anion Gap 13.0 mmol/L Blood Urea Nitrogen 6 mg/dl Creatinine < 0.15 mg/dl Est Creatinine Clear Calc Drug Dose 318.2 ml/min Estimated GFR () > 150.0 Estimated GFR (Non- > 150.0 BUN/Creatinine Ratio Random Glucose 73 mg/dl Calcium Level 9.0 mg/dl Total Bilirubin 1.0 mg/dl Aspartate Amino Transf (AST/SGOT) 50 U/L Alanine Aminotransferase (ALT/SGPT) 25 U/L Alkaline Phosphatase 234 U/L Total Protein 6.6 gm/dl Albumin 2.6 gm/dl Globulin 4.0 gm/dl Albumin/Globulin Ratio 0.6 Chemistry Specimen Hemolysis Impression Patient is a 61 year old female with ALS who presented with encephalopathy and is being treated for a urinary tract infection. GI has been consulted for an alkaline phosphatase of 266 and elevated bilirubin (T bili 1.4, D bili 0.8). RUQ US does not indicate any ductal abnormalities or abnormalities of the liver. There were gallstones noted as well as gallbladder sludge without evidence of cholecystitis. The patient is not experiencing any abdominal pain. Plan Given the patient's lack of GI symptoms, it is unclear that the gallstones/ sludge are contributing to the abnormal alk phos & bilirubin. Would proceed with identifying any underlying source of these elevations by obtaining a GGT. If GGT is elevated, would consider obtaining AMA and possibly MRCP for further evaluation, though an AMA result would not likely return during the course of this hospitalization. If this is the case, the work-up can be completed as an outpatient. If the GGT is normal, would consider evaluation for bone abnormalities. If the patient develops abdominal pain, consider obtaining HIDA scan for further evaluation of the gallbladder function. Would recommend continuing to monitor CMP for further increases in these values. Thank you for allowing us to participate in the care of this patient. If you should have any questions or concerns, do not hesitate to contact us. Agree with FLORINDA Vásquez as above Abd: Soft, NT, ND Continue current therapy GGT pending
[2017-09-18] MEDS: LACTOBACILLUS ACIDOPHILUS 1 GM PACK PEG SCH ×3 (13:44→17:18)
[2017-09-18] MEDS: SACCHAROMYCES BOUL (FLORASTOR) 250 MG CAP PEG SCH ×2 (13:44→21:57)
[2017-09-18] MEDS: METOPROLOL TARTRATE 25 MG TAB PEG SCH ×2 (13:44→21:54)
[2017-09-18] MEDS: SENNA 17.6 MG/10 ML UDP PEG SCH (13:45)
[2017-09-18] MEDS: HEPARIN SOD 5000 UNIT/0.5 ML CARP SQ SCH ×2 (13:47→21:59)
[2017-09-18] MEDS: PEPTAMEN 1.5 CAL 1000ML BAG PEG SCH (17:20)
[2017-09-18] MEDS ORDERED: CEFTRIAXONE SOD INJ 2,000 MG in DEXTROSE 5% 50ML 50 ML IV SCH (19:00)
[2017-09-18] MEDS: CEFTRIAXONE SOD INJ 1 GM in DEXTROSE 5% 50ML 50 ML IV SCH (19:30)
[2017-09-18] MEDS: LANSOPRAZOLE SOLUTAB 30 MG PEG SCH (21:55)
[2017-09-18] MEDS: NUEDEXTA 20/10 PEG SCH (21:56)
[2017-09-18] MEDS: RILUZOLE 50 MG TAB PO SCH (21:57)
[2017-09-19] VITALS (11 sets, daily range): BP systolic 82–129; BP diastolic 53–84; PULSE 63–74; TEMP 36.2–37.2; O2SAT 98–100
[2017-09-19 06:59] LABS: BASO % 0.4 %; BASO ABS # 0.05 K/uL (0-0.2); EOS % 3.2 %; EOS ABS # 0.42 K/uL (0-0.5); HEMOGLOBIN 12.9 g/dL (12.0-16.0); IG# 0.18 K/uL (0.00-0.02); LYMPH % 26.8 %; LYMPH ABS # 3.57 K/uL (1.2-3.4); MEAN CELL VOLUME 89.2 fL (80-100); MEAN CORPUSCULAR HEMOGLOBIN 31.1 pg (25-34); MEAN CORPUSCULAR HGB CONC 34.9 g/dl (32-36); MEAN PLATELET VOLUME 10.3 fL (7.4-10.4); MONO % 9.1 %; MONO ABS # 1.21 K/uL (0.11-0.59); NEUT % 59.1 %; NEUT ABS # 7.87 K/uL (1.4-6.5); PLATELET COUNT 453 K/uL (130-400); RED CELL DISTRIBUTION WIDTH CV 16.8 % (11.5-14.5); RED CELL DISTRIBUTION WIDTH SD 53.7 fL (36.4-46.3)
[2017-09-19 07:19] LABS: ALBUMIN 2.7 gm/dl (3.4-5.0); ALKALINE PHOSPHATASE 262 U/L (45-117); ALT/SGPT 28 U/L (12-78); AST/SGOT 46 U/L (15-37); BLOOD UREA NITROGEN 7 mg/dl (7-18); CALCIUM 8.5 mg/dl (8.5-10.1); CARBON DIOXIDE 15 mmol/L (21-32); GLUCOSE 101 mg/dl (70-99); POTASSIUM 4.1 mmol/L (3.5-5.1); SODIUM 135 mmol/L (136-145); TOTAL PROTEIN 6.8 gm/dl (6.4-8.2)
--- NOTE | 2017-09-19 07:24 | Family Medicine Progress Note ---
Progress Note Date of Service Sep 19, 2017. Subjective Pt evaluation today including: conversation w/ patient, physical exam, chart review, lab review Pain: Reports pain Left Abdomen/left flank PO Intake: Peg Tube Voiding: helton catheter in place (Dark Urine) Patient is non verbal communicates by twitching her mouth and upward eye deflection. Patient is making good urine, no complaints. Reports pain on left abdomen/flank. Additional Comments: Deferred as is non verbal and family not present to interpret. Medications Current Inpatient Medications Medications (Trade) Dose Ordered Sig/Ger Route Start Time Stop Time Status Last Admin Dose Admin Acetaminophen (Tylenol Tab) 650 mg Q4H PRN PO 09/17/17 20:30 10/17/17 20:29 Ondansetron HCl (Zofran Inj) 4 mg Q6H PRN IV 09/17/17 20:30 10/17/17 20:29 Lactobacillus Acidophilus (Lactinex Granules Pack) 1 gm TIDM PEG 09/18/17 07:30 10/18/17 07:59 09/18/17 17:18 1 GM Lansoprazole (Prevacid Solutab) 30 mg HS PEG 09/17/17 21:00 10/17/17 20:59 09/18/17 21:55 30 MG Metoprolol Tartrate (Lopressor Tab) 12.5 mg BID PEG 09/17/17 21:00 10/17/17 20:59 09/18/17 13:44 12.5 MG Saccharomyces Boulardii (Florastor Cap) 250 mg BID PEG 09/17/17 21:00 10/17/17 20:59 09/18/17 21:57 250 MG Senna (Senokot Syrup) 17.6 mg QAM PEG 09/18/17 09:00 10/18/17 08:59 09/18/17 13:45 17.6 MG Miscellaneous Information (Order Awaiting Action) 1 ea QS N/A 09/18/17 00:00 10/18/17 00:00 Ceftriaxone Sodium 1 gm/ Dextrose 50 ml @ 100 mls/hr Q24H IV 09/18/17 19:00 09/23/17 18:59 09/18/17 19:30 100 MLS/HR Heparin Sodium (Porcine) (Heparin Sq 5000 Unit/0.5ml) 5,000 unit Q12 SQ 09/18/17 09:00 10/18/17 08:59 09/18/17 21:59 5,000 UNIT Enteral Nutritional Formula (Peptamen 1.5) 1,000 ml UD PEG 09/18/17 14:15 10/18/17 14:14 09/18/17 17:20 1,000 ML Riluzole (Rilutek) 50 mg BID PO 09/18/17 21:00 10/18/17 20:59 09/18/17 21:57 50 MG Non-Formulary Medication (Non-Formulary Patient'S Own Med) 1 ea BID PEG 09/18/17 21:00 10/18/17 20:59 09/18/17 21:56 1 EA Objective Vital Signs Date Time Temp Pulse Resp B/P (MAP) Pulse Ox O2 Delivery O2 Flow Rate FiO2 09/19/17 06:59 21 09/19/17 05:30 21 09/19/17 04:51 36.2 69 18 129/84 (99) 100 Mechanical Ventilator 09/19/17 03:05 21 09/19/17 00:19 36.3 64 22 107/82 (90) 100 Trach Collar 09/18/17 20:00 98 Mechanical Ventilator 21 Trach Collar 09/18/17 19:42 36.1 63 16 104/79 (87) 100 Trach Collar 09/18/17 19:30 21 09/18/17 16:00 100 Trach Collar 21 09/18/17 15:50 113/81 (92) 09/18/17 15:33 36.2 56 16 87/66 (73) 98 Trach Collar 09/18/17 15:00 21 09/18/17 14:00 100 Mechanical Ventilator 09/18/17 12:00 36.4 63 18 122/91 (101) 99 Trach Collar 09/18/17 07:35 21 Physical Exam General Appearance: WD/WN, + mild distress (pain left abdomen/flank pain ) Eyes: normal inspection, EOMI, sclerae normal ENT: + pertinent finding (COnjuntival inflammation is resolving, abnormal tear ducts/canthus) Neck: supple, no adenopathy, thyroid normal, no JVD, no carotid bruits Respiratory/Chest: chest non-tender, lungs clear, normal breath sounds, no respiratory distress, no accessory muscle use Cardiovascular: regular rate, rhythm, no edema, no gallop, no murmur Abdomen: normal bowel sounds, non tender, soft, no organomegaly, no pulsatile mass, + pertinent finding (Peg in place) Extremities: non-tender, normal inspection, no calf tenderness, normal capillary refill, + pedal edema (1+ edema) Neurologic/Psychiatric: alert Skin: normal color, warm/dry, no rash Lymphatic: no adenopathy Laboratory Results Date/Time Source Procedure Growth Status 09/17/17 18:00 Urine,Catheterized Urine Culture - Preliminary Klebsiella Pneumoniae Resulted Last Resulted 09/19/17 06:44 Red Blood Count 4.15, Mean Corpuscular Volume 89.2, Mean Corpuscular Hemoglobin 31.1, Mean Corpuscular Hemoglobin Concent 34.9, Mean Platelet Volume 10.3, Neutrophils (%) (Auto) 59.1, Lymphocytes (%) (Auto) 26.8, Monocytes (%) (Auto) 9.1, Eosinophils (%) (Auto) 3.2, Basophils (%) (Auto) 0.4, Neutrophils # (Auto) 7.87, Lymphocytes # (Auto) 3.57, Monocytes # (Auto) 1.21, Eosinophils # (Auto) 0.42, Basophils # (Auto) 0.05 Last Resulted 09/19/17 06:44 Assessment and Plan 61 y/o female with a history of ALS, chronic respiratory failure s/p tracheostomy, History of Kidney stones, HTN, generalized anxiety disorder, Anemia of chronic disease, and GERD presenting with encephalopathy UTI, Flank pain - UA suspicious for UTI. Previous urine cxs - Urine cx from 08/23/17 is pansensitive - may be contributor to altered mental status - Renal U/S showed "1. Redemonstration of a left renal staghorn calculus with mild collecting system dilatation which is similar to CT of August 13, 2017. Left ureteral jet identified. 2. Cholelithiasis and sludge within the gallbladder without gallbladder wall thickening or pericholecystic fluid. 3. No biliary ductal dilatation. " - Given Rocephin in ED - Continue Rocephin daily - Patient reports pain in flank started on standing tramadol (50-100 mg depending on pain) monitor for mental status changes - Uro consulted Hyponatremia - asymptomatic, Na 124 on arrival, does not appear to be chronic - etiology unclear , likely contributor to mental status change - Hyponatremic at 135 on arrival - Urine Osmolality of 195. serum osm 264 - Consider LR 90 mls/hr depending on serum osm Encephalopathy - nonverbal at baseline, worsening fatigue, increase difficulty in communicating - possibly infectious etiology given UTI vs Hyponatremia - Continue to monitor - Treat UTI ad above Hypokalemia - given 40 meq KCl in ED - Replete via Peg tube - F/u repeat BMP Elevated Alk Phos, Hyperbilirubinemia - elevated from baseline, no GI complaints, abdominal exam benign - U/S Abdomen - GI consulted" -lack of GI symptoms, it is unclear that the gallstones/sludge are contributing to the abnormal alk phos & bilirubin. -obtain GGT. -GGT is elevated, would consider obtaining AMA and possibly MRCP for further evaluation -ama can be followed up as an outpatientoutpatient. -If the GGT is normal, would consider evaluation for bone abnormalities. -If the patient develops abdominal pain, consider obtaining HIDA scan -continue to monitor CMP for further increases in these values." Chronic respiratory failure - s/p tracheostomy - uses [facility] ventilator HTN - BP controlled - Metoprolol at home dose Anemia of Chronic disease - within baseline, -check daily cbc GERD - PPI ALS - diffuse paralysis , communicates with eye movement - Continue Riluzole Anxiety: - Held Xanax, Ativan - Continue to monitor Disposition: Admit to Tele Diet: Nutrition via peg tube DVT PPX: Heparin sq Code status: FULL Resident Physician Supervision Note: I interviewed and examined the patient. Discussed with Dr. Shields and agree with findings and plan as documented in the note. Any exceptions or clarifications are listed here: None Documented By: Lenny Ulloa seems to be feeling better, eyes moving better as well, family pleased with progress vitals noted resting comfortably nad breathing unlabored no pallor or icterus AMS/probable sepsis -ssupect viral illness initially (hence conjunctiviits that appears viral) and since staghorn present, once immune system "distracted" (relative compromise) w viral illness, UTI/pyelo type picture ensued, and hyponatremia ensued from there -improving - continue rocephin for now - [place] [facility] dc on PO cephalosporin, outpt stone management supportive care, IVF -stable for med/surg Continued [facility] stay due to: multiple IV medications needed Discharge planning: uncertain Resident Tracking Resident Involvement: Resident Care Provided Care Provided: Adult Hospital Medicine
[2017-09-19] MEDS: NUEDEXTA 20/10 PEG SCH ×2 (07:57→20:17)
[2017-09-19] MEDS: LACTOBACILLUS ACIDOPHILUS 1 GM PACK PEG SCH ×3 (07:57→16:31)
[2017-09-19] MEDS: SENNA 17.6 MG/10 ML UDP PEG SCH (07:57)
[2017-09-19] MEDS: METOPROLOL TARTRATE 25 MG TAB PEG SCH ×2 (07:58→20:21)
[2017-09-19] MEDS: SACCHAROMYCES BOUL (FLORASTOR) 250 MG CAP PEG SCH ×2 (08:01→20:19)
[2017-09-19] MEDS: RILUZOLE 50 MG TAB PO SCH ×2 (08:01→20:19)
[2017-09-19] MEDS: HEPARIN SOD 5000 UNIT/0.5 ML CARP SQ SCH ×2 (08:05→21:08)
--- NOTE | 2017-09-19 10:28 | Clinical Documentation Query ---
JESSIE Orozco : CLINICAL DOCUMENTATION QUERY Documentation notes that patient requires urethral straight catheterization BID. As she is admitted for UTI and associated sequelae, as appropriate, consider documentation as suggested below as this impacts accurate DRG assignment. Thank you. In your clinical opinion is this patient being managed for: ( ) UTI due to intermittent urethral catheterization ( X ) Not Agree ( ) Other explanation of clinical findings (No explanation is considered a No Response) ( ) Unable to determine ( ) Need to Discuss (Phone CDS or qliq) (No discussion is considered a No Response) The medical record reflects the following clinical findings, treatment, and risk factors. Clinical Indicators: As above Treatment: UA, C&S, IV Rocephin Risk Factors: ALS, urinary retention Please clarify and document your clinical opinion in the progress notes and discharge summary. Terms such as "probable", "suspected", "likely", "questionable", "possible", or "still to be ruled out" are acceptable. IF IN AGREEMENT, YOU MUST DOCUMENT ABOVE DIAGNOSTIC STATEMENT IN DAILY PROGRESS NOTES AND DISCHARGE SUMMARY. This document is not part of the patient's record. Thank You, Sotero Mcdaniel, TAYLOR [phone]
[2017-09-19] MEDS ORDERED: LACTATED RINGER'S 1000ML 1,000 ML IV SCH (13:30)
--- NOTE | 2017-09-19 14:18 | Urology Consultation ---
History General Date of Service: Sep 19, 2017. Chief Complaint: UTI, left staghorn calculus Primary Care Physician: Jean Christy III, CRNP Pt seen a urologist before?: Yes (Established with Dr. Mary) If yes, why?: 3cm staghorn calculus of Left Kidney, referred to [facility] for management History of Present Illness 61 year old female, left staghorn calculus, recurrent UTI. Last seen by Dr. Mary in July 2017, when she was referred to [facility] for left staghorn management likely PCNL. 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 Communicates via mouth twitches and eye movements. Patient is on chronic vent via trach collar. Per caregiver was experiencing eye pain/mental status change and was brought to ER. UC&S positive, malave sensitive. Remains on IV antibiotics. Afebrile. Tolerating tube feedings. Laboratory Labs were reviewed and are within normal limits unless listed below. Labs are available in the chart and at [facility] Problem List Medical Problems: (1) Eye injury Status: Acute (2) Fecal impaction Status: Acute (3) Fecal impaction Status: Acute (4) Generalized weakness Status: Acute (5) Hypokalemia Status: Acute (6) Hyponatremia Status: Acute (7) Pneumonia Status: Acute (8) Urinary tract infection Status: Acute (9) UTI (urinary tract infection) Status: Acute Past History anxiety, GERD, hypertension, other (chronic respiratory failure - vent; ALS) Family History FH: cancer FH: lung disease FHx: heart disease Hypertension Social History Hx Tobacco Use In Past Year?: No Marital status: Housing status: lives with family Occupation status: disabled History of MDRO No Allergies Coded Allergies: Sulfamethoxazole w/Trimethoprim (Verified Allergy, Intermediate, RASH, ) Medications Home Medications: Home Meds and Scripts Medications Dose Route/Sig Max Daily Dose Days Date Category Ativan (Lorazepam) 0.5 Mg Tab 0.5 Mg PEG TID 09/17/17 Reported Ambien (Zolpidem Tartrate) 5 Mg Tab 5 Mg PEG HS 09/17/17 Reported Senna (Sennosides) 8.8 Mg/5 Ml Syp 10 Ml PEG QAM 09/17/17 Reported Miralax (Polyethylene Glycol 3350) 1 Pow Pow 17 Gm PO DAILY 09/17/17 Reported Lactinex Granules (Lactobacillus Acidophilus) 1 Gm Pkt 1 Gm PEG TIDM 09/17/17 Reported Vitamin C (Ascorbic Acid) 500 Mg Chw 500 Mg PEG DAILY 09/17/17 Reported Prempro 0.625MG/2.5MG (Estrogens Conj/Medroxyprogest Acet) Tab 1 Tab PEG HS 10/17/16 Reported Lopressor (Metoprolol Tartrate) 25 Mg Tab 12.5 Mg PEG BID 10/17/16 Reported Jevity 1.5 Marlon (Enteral Nutritional Formula) 1 Can Liqd 1 Can PEG UD 10/17/16 Reported Duoneb (Ipratropium-Albuterol) 3 Ml Nebu 1 Treatment INH Q4H 10/17/16 Reported Buspirone Hcl 10 Mg Tab 10 Mg PEG BID 10/17/16 Reported Alprazolam 0.5 Mg Tab 0.5 Mg PEG Q6H PRN 10/03/16 Reported Zofran (Ondansetron HCl) 4 Mg/5 Ml Syrp 5-8 Ml PEG Q6H PRN 10/03/16 Reported Claritin (Loratadine) 10 Mg Tab 10 Mg PEG DAILY PRN 06/12/16 Reported Prevacid Solutab (Lansoprazole) 30 Mg Soco 30 Mg PEG HS 06/12/16 Reported Tylenol (Acetaminophen) 325 Mg Tab 325 Mg PEG Q6H PRN 07/27/15 Reported Nuedexta (Dextromethorphan Hbr-Quinidine) 1 Cap Cap 10 Mg PEG BID 09/29/14 Reported Florastor (Saccharomyces Boulardii) 250 Mg Cap 250 Mg PEG BID 08/11/14 Reported Riluzole 50 Mg Tab 50 Mg PEG BID 02/02/14 Reported Inpatient Medications: Current Inpatient Medications Medications (Trade) Dose Ordered Sig/Ger Route Start Time Stop Time Status Last Admin Dose Admin Acetaminophen (Tylenol Tab) 650 mg Q4H PRN PO 09/17/17 20:30 10/17/17 20:29 09/19/17 09:24 650 MG Ondansetron HCl (Zofran Inj) 4 mg Q6H PRN IV 09/17/17 20:30 10/17/17 20:29 Lactobacillus Acidophilus (Lactinex Granules Pack) 1 gm TIDM PEG 09/18/17 07:30 10/18/17 07:59 09/19/17 11:30 1 GM Lansoprazole (Prevacid Solutab) 30 mg HS PEG 09/17/17 21:00 10/17/17 20:59 09/18/17 21:55 30 MG Metoprolol Tartrate (Lopressor Tab) 12.5 mg BID PEG 09/17/17 21:00 10/17/17 20:59 09/19/17 07:58 12.5 MG Saccharomyces Boulardii (Florastor Cap) 250 mg BID PEG 09/17/17 21:00 10/17/17 20:59 09/19/17 08:01 250 MG Senna (Senokot Syrup) 17.6 mg QAM PEG 09/18/17 09:00 10/18/17 08:59 09/19/17 07:57 17.6 MG Miscellaneous Information (Order Awaiting Action) 1 ea QS N/A 09/18/17 00:00 10/18/17 00:00 Ceftriaxone Sodium 1 gm/ Dextrose 50 ml @ 100 mls/hr Q24H IV 09/18/17 19:00 09/23/17 18:59 09/18/17 19:30 100 MLS/HR Heparin Sodium (Porcine) (Heparin Sq 5000 Unit/0.5ml) 5,000 unit Q12 SQ 09/18/17 09:00 10/18/17 08:59 09/19/17 08:05 5,000 UNIT Enteral Nutritional Formula (Peptamen 1.5) 1,000 ml UD PEG 09/18/17 14:15 10/18/17 14:14 09/18/17 17:20 1,000 ML Riluzole (Rilutek) 50 mg BID PO 09/18/17 21:00 10/18/17 20:59 09/19/17 08:01 50 MG Non-Formulary Medication (Non-Formulary Patient'S Own Med) 1 ea BID PEG 09/18/17 21:00 10/18/17 20:59 09/19/17 07:57 1 EA Tramadol HCl (Ultram Tab) Range 50-100 ask pt if p... Q6 PEG 09/19/17 18:00 10/04/17 00:00 Review of Systems Review of Systems Constitutional: No fever Neurological: + see HPI Gastrointestinal: + see HPI Cardiovascular: + see HPI Respiratory: + see HPI Psychologic / Mental: + see HPI Female : + see HPI, + infections, + kidney stones Physical Exam Vital Signs: Vital Signs Past 12 Hours Date Time Temp Pulse Resp B/P (MAP) Pulse Ox O2 Delivery O2 Flow Rate FiO2 09/19/17 12:14 37.2 63 18 99 Trach Collar 09/19/17 11:02 82/62 (69) 09/19/17 08:17 65 20 103/78 (86) 100 Trach Collar 09/19/17 08:00 100 Mechanical Ventilator 21 09/19/17 06:59 21 09/19/17 05:30 21 09/19/17 04:51 36.2 69 18 129/84 (99) 100 Mechanical Ventilator 09/19/17 03:05 21 Physical Exam: General Appearance: no apparent distress Neck: supple, no JVD Respiratory/Chest: no respiratory distress, no accessory muscle use, + pertinent finding (vent via trach collar ) Cardiovascular: no JVD Extremities: normal inspection Neurologic/Psychiatric: + pertinent finding (see HPI) Skin: normal color Assessment & Plan Assessment & Plan 61 year old female, left staghorn calculus, recurrent UTI. Caregiver not available to facilitate communication during exam. 3 CM staghorn calculus L kidney: Good urine output in Jorge. Creatinine slightly elevated from baseline but remains stable. Continue to monitor. If patient status declines will need repeat CT abdomen & pelvis to assess stone. May require acute stent placement ahead of outpatient stone management if stone has migrated. UTI: Continue IV antibiotics per sensitivities, transition to PO for at least 10 days total therapy. Thank you for the consult. Will continue to follow along with primary service. Pt seen and agree that given left jet on sonogram and mild hydronephrosis on ct last month and pt on correct antibiotic would get CT if things worse Pt needs to have staghorn treated promptly at [place] when she stabilizes
[2017-09-19] MEDS: TRAMADOL HCL 50 MG TAB PEG SCH ×2 (17:38→23:58)
[2017-09-19] MEDS: CEFTRIAXONE SOD INJ 1 GM in DEXTROSE 5% 50ML 50 ML IV SCH (17:39)
[2017-09-19] MEDS: LACTATED RINGER'S 1000ML 1,000 ML IV SCH (18:34)
[2017-09-19] MEDS ORDERED: ACETAMINOPHEN SOLN 650MG/20.3 ML UDC PO PRN (20:15)
[2017-09-19] MEDS: LANSOPRAZOLE SOLUTAB 30 MG PEG SCH (20:18)
[2017-09-20 03:55] VITALS: BP 94/60; PULSE 62; TEMP 36.4; O2SAT 97
[2017-09-20] MEDS: PEPTAMEN 1.5 CAL 1000ML BAG PEG SCH (03:55)
[2017-09-20] MEDS: LACTATED RINGER'S 1000ML 1,000 ML IV SCH (05:55)
[2017-09-20] MEDS: TRAMADOL HCL 50 MG TAB PEG SCH ×2 (05:55→12:21)
[2017-09-20 06:29] LABS: BASO % 0.6 %; BASO ABS # 0.05 K/uL (0-0.2); EOS % 4.6 %; EOS ABS # 0.42 K/uL (0-0.5); HEMATOCRIT 31.4 % (37-47); HEMOGLOBIN 10.4 g/dL (12.0-16.0); IG# 0.16 K/uL (0.00-0.02); LYMPH % 39.4 %; LYMPH ABS # 3.57 K/uL (1.2-3.4); MEAN CELL VOLUME 91.5 fL (80-100); MEAN CORPUSCULAR HEMOGLOBIN 30.3 pg (25-34); MEAN CORPUSCULAR HGB CONC 33.1 g/dl (32-36); MEAN PLATELET VOLUME 10.1 fL (7.4-10.4); MONO % 7.6 %; MONO ABS # 0.69 K/uL (0.11-0.59); NEUT ABS # 4.18 K/uL (1.4-6.5); PLATELET COUNT 363 K/uL (130-400); RED CELL DISTRIBUTION WIDTH SD 55.6 fL (36.4-46.3); WHITE BLOOD COUNT 9.07 K/uL (4.8-10.8)
[2017-09-20 07:04] LABS: ALBUMIN 2.2 gm/dl (3.4-5.0); CALCIUM 8.3 mg/dl (8.5-10.1); CREATININE 0.29 mg/dl (0.60-1.20); POTASSIUM 3.3 mmol/L (3.5-5.1)
[2017-09-20 07:06] LABS: TOTAL PROTEIN 5.7 gm/dl (6.4-8.2)
[2017-09-20 07:11] VITALS: BP 80/54; PULSE 65; TEMP 36.8; O2SAT 97
--- NOTE | 2017-09-20 07:45 | Family Medicine Progress Note ---
Progress Note Date of Service Sep 20, 2017. Medications Current Inpatient Medications Medications (Trade) Dose Ordered Sig/Ger Route Start Time Stop Time Status Last Admin Dose Admin Ondansetron HCl (Zofran Inj) 4 mg Q6H PRN IV 09/17/17 20:30 10/17/17 20:29 Lactobacillus Acidophilus (Lactinex Granules Pack) 1 gm TIDM PEG 09/18/17 07:30 10/18/17 07:59 09/19/17 16:31 1 GM Lansoprazole (Prevacid Solutab) 30 mg HS PEG 09/17/17 21:00 10/17/17 20:59 09/19/17 20:18 30 MG Metoprolol Tartrate (Lopressor Tab) 12.5 mg BID PEG 09/17/17 21:00 10/17/17 20:59 09/19/17 20:21 12.5 MG Saccharomyces Boulardii (Florastor Cap) 250 mg BID PEG 09/17/17 21:00 10/17/17 20:59 09/19/17 20:19 250 MG Senna (Senokot Syrup) 17.6 mg QAM PEG 09/18/17 09:00 10/18/17 08:59 09/19/17 07:57 17.6 MG Miscellaneous Information (Order Awaiting Action) 1 ea QS N/A 09/18/17 00:00 10/18/17 00:00 Ceftriaxone Sodium 1 gm/ Dextrose 50 ml @ 100 mls/hr Q24H IV 09/18/17 19:00 09/23/17 18:59 09/19/17 17:39 100 MLS/HR Heparin Sodium (Porcine) (Heparin Sq 5000 Unit/0.5ml) 5,000 unit Q12 SQ 09/18/17 09:00 10/18/17 08:59 09/19/17 21:08 5,000 UNIT Enteral Nutritional Formula (Peptamen 1.5) 1,000 ml UD PEG 09/18/17 14:15 10/18/17 14:14 09/20/17 03:55 1,000 ML Riluzole (Rilutek) 50 mg BID PO 09/18/17 21:00 10/18/17 20:59 09/19/17 20:19 50 MG Non-Formulary Medication (Non-Formulary Patient'S Own Med) 1 ea BID PEG 09/18/17 21:00 10/18/17 20:59 09/19/17 20:17 1 EA Tramadol HCl (Ultram Tab) Range 50-100 ask pt if p... Q6 PEG 09/19/17 18:00 10/04/17 00:00 09/19/17 17:38 100 MG Lactated Ringer's 1,000 ml @ 90 mls/hr Q11H7M IV 09/19/17 18:30 10/19/17 18:29 09/20/17 05:55 90 MLS/HR Acetaminophen (Tylenol Soln) 650 mg Q4H PRN PO 09/19/17 20:15 10/19/17 20:14 09/19/17 20:16 650 MG Objective Vital Signs Date Time Temp Pulse Resp B/P (MAP) Pulse Ox O2 Delivery O2 Flow Rate FiO2 09/20/17 07:11 36.8 65 20 80/54 (63) 97 09/20/17 03:55 36.4 62 16 94/60 (71) 97 Mechanical Ventilator 09/20/17 02:14 21 09/19/17 23:59 Trach Collar 21 09/19/17 23:51 36.2 63 16 86/53 (64) 99 Trach Collar 09/19/17 23:03 21 09/19/17 20:00 100 Mechanical Ventilator 21 09/19/17 19:59 36.7 74 18 90/65 (73) 98 Trach Collar 09/19/17 15:30 36.6 72 16 105/73 (84) 100 Trach Collar 09/19/17 15:00 96/68 (77) 09/19/17 14:32 21 09/19/17 12:14 37.2 63 18 99 Trach Collar 09/19/17 11:02 82/62 (69) 09/19/17 08:17 65 20 103/78 (86) 100 Trach Collar 09/19/17 08:00 100 Mechanical Ventilator 21 Laboratory Results Last Resulted 09/20/17 06:14 Red Blood Count 3.43, Mean Corpuscular Volume 91.5, Mean Corpuscular Hemoglobin 30.3, Mean Corpuscular Hemoglobin Concent 33.1, Mean Platelet Volume 10.1, Neutrophils (%) (Auto) 46.0, Lymphocytes (%) (Auto) 39.4, Monocytes (%) (Auto) 7.6, Eosinophils (%) (Auto) 4.6, Basophils (%) (Auto) 0.6, Neutrophils # (Auto) 4.18, Lymphocytes # (Auto) 3.57, Monocytes # (Auto) 0.69, Eosinophils # (Auto) 0.42, Basophils # (Auto) 0.05 Last Resulted 09/20/17 06:14 Date/Time Source Procedure Growth Status 09/17/17 18:00 Urine,Catheterized Urine Culture - Preliminary Klebsiella Pneumoniae Gram Negative Bacilli Resulted Assessment and Plan 61 y/o female with a history of ALS, chronic respiratory failure s/p tracheostomy, History of Kidney stones, HTN, generalized anxiety disorder, Anemia of chronic disease, and GERD presenting with encephalopathy UTI, Flank pain - UA suspicious for UTI. Previous urine cxs - Urine cx from 08/23/17 is pansensitive - may be contributor to altered mental status - Renal U/S showed "1. Redemonstration of a left renal staghorn calculus with mild collecting system dilatation which is similar to CT of August 13, 2017. Left ureteral jet identified. 2. Cholelithiasis and sludge within the gallbladder without gallbladder wall thickening or pericholecystic fluid. 3. No biliary ductal dilatation. " - Given Rocephin in ED - Continue Rocephin daily - Patient reports pain in flank started on standing tramadol (50-100 mg depending on pain) monitor for mental status changes - Uro consulted "3 CM staghorn calculus L kidney: Good urine output in Jorge. Creatinine slightly elevated from baseline but remains stable. Continue to monitor. If patient status declines will need repeat CT abdomen & pelvis to assess stone. May require acute stent placement ahead of outpatient stone management if stone has migrated. UTI: Continue IV antibiotics per sensitivities, transition to PO for at least 10 days total therapy. Thank you for the consult. Will continue to follow along with primary service." Hyponatremia - asymptomatic, Na 124 on arrival, does not appear to be chronic - etiology unclear , likely contributor to mental status change - Hyponatremic at 135 on arrival - Urine Osmolality of 195. serum osm 264 - Consider LR 90 mls/hr depending on serum osm Encephalopathy - nonverbal at baseline, worsening fatigue, increase difficulty in communicating - possibly infectious etiology given UTI vs Hyponatremia - Continue to monitor - Treat UTI ad above Hypokalemia - given 40 meq KCl in ED - Replete via Peg tube - F/u repeat BMP Elevated Alk Phos, Hyperbilirubinemia - elevated from baseline, no GI complaints, abdominal exam benign - U/S Abdomen - GI consulted" -lack of GI symptoms, it is unclear that the gallstones/sludge are contributing to the abnormal alk phos & bilirubin. -obtain GGT. -GGT is elevated, would consider obtaining AMA and possibly MRCP for further evaluation -ama can be followed up as an outpatientoutpatient. -If the GGT is normal, would consider evaluation for bone abnormalities. -If the patient develops abdominal pain, consider obtaining HIDA scan -continue to monitor CMP for further increases in these values." Chronic respiratory failure - s/p tracheostomy - uses [facility] ventilator HTN - BP controlled - Metoprolol at home dose Anemia of Chronic disease - within baseline, -check daily cbc GERD - PPI ALS - diffuse paralysis , communicates with eye movement - Continue Riluzole Anxiety: - Held Xanax, Ativan - Continue to monitor Disposition: Admit to Tele Diet: Nutrition via peg tube DVT PPX: Heparin sq Code status: FULL Resident Tracking Resident Involvement: Resident Care Provided Care Provided: Adult Hospital Medicine
[2017-09-20] MEDS: NUEDEXTA 20/10 PEG SCH (09:00)
[2017-09-20] MEDS: RILUZOLE 50 MG TAB PO SCH (09:00)
[2017-09-20] MEDS: SENNA 17.6 MG/10 ML UDP PEG SCH (09:31)
[2017-09-20] MEDS: SACCHAROMYCES BOUL (FLORASTOR) 250 MG CAP PEG SCH (09:32)
[2017-09-20] MEDS: METOPROLOL TARTRATE 25 MG TAB PEG SCH (09:32)
[2017-09-20] MEDS: LACTOBACILLUS ACIDOPHILUS 1 GM PACK PEG SCH ×2 (09:33→12:20)
[2017-09-20] MEDS: HEPARIN SOD 5000 UNIT/0.5 ML CARP SQ SCH (09:42)
--- NOTE | 2017-09-20 10:12 | Gastroenterology Progress Note ---
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 The patient communicates yes/no with blinking, though she struggled to stay awake during my evaluation. GI has been consulted for elevated alkaline phosphatase and elevated bilirubin. A GGT was mildly elevated at 98. An AMA is pending. The alk phos & bilirubin have begun to improve with treatment of infection. There are no further GI concerns at present. Review of Systems Denies abdominal pain, nausea, vomiting. Flank pain persists. ROS limited by patient's participation. Medications Current Inpatient Medications Medications (Trade) Dose Ordered Sig/Ger Route Start Time Stop Time Status Last Admin Dose Admin Ondansetron HCl (Zofran Inj) 4 mg Q6H PRN IV 09/17/17 20:30 10/17/17 20:29 Lactobacillus Acidophilus (Lactinex Granules Pack) 1 gm TIDM PEG 09/18/17 07:30 10/18/17 07:59 09/20/17 09:33 1 GM Lansoprazole (Prevacid Solutab) 30 mg HS PEG 09/17/17 21:00 10/17/17 20:59 09/19/17 20:18 30 MG Metoprolol Tartrate (Lopressor Tab) 12.5 mg BID PEG 09/17/17 21:00 10/17/17 20:59 09/20/17 09:32 12.5 MG Saccharomyces Boulardii (Florastor Cap) 250 mg BID PEG 09/17/17 21:00 10/17/17 20:59 09/20/17 09:32 250 MG Senna (Senokot Syrup) 17.6 mg QAM PEG 09/18/17 09:00 10/18/17 08:59 09/20/17 09:31 17.6 MG Miscellaneous Information (Order Awaiting Action) 1 ea QS N/A 09/18/17 00:00 10/18/17 00:00 Ceftriaxone Sodium 1 gm/ Dextrose 50 ml @ 100 mls/hr Q24H IV 09/18/17 19:00 09/23/17 18:59 09/19/17 17:39 100 MLS/HR Heparin Sodium (Porcine) (Heparin Sq 5000 Unit/0.5ml) 5,000 unit Q12 SQ 09/18/17 09:00 10/18/17 08:59 09/20/17 09:42 5,000 UNIT Enteral Nutritional Formula (Peptamen 1.5) 1,000 ml UD PEG 09/18/17 14:15 10/18/17 14:14 09/20/17 03:55 1,000 ML Riluzole (Rilutek) 50 mg BID PO 09/18/17 21:00 10/18/17 20:59 09/20/17 09:00 50 MG Non-Formulary Medication (Non-Formulary Patient'S Own Med) 1 ea BID PEG 09/18/17 21:00 10/18/17 20:59 09/20/17 09:00 1 EA Tramadol HCl (Ultram Tab) Range 50-100 ask pt if p... Q6 PEG 09/19/17 18:00 10/04/17 00:00 09/19/17 17:38 100 MG Lactated Ringer's 1,000 ml @ 90 mls/hr Q11H7M IV 09/19/17 18:30 10/19/17 18:29 09/20/17 05:55 90 MLS/HR Acetaminophen (Tylenol Soln) 650 mg Q4H PRN PO 09/19/17 20:15 10/19/17 20:14 09/19/17 20:16 650 MG Objective Vital Signs Date Time Temp Pulse Resp B/P (MAP) Pulse Ox O2 Delivery O2 Flow Rate FiO2 09/20/17 07:20 21 09/20/17 07:11 36.8 65 20 80/54 (63) 97 09/20/17 03:55 36.4 62 16 94/60 (71) 97 Mechanical Ventilator 09/20/17 02:14 21 09/19/17 23:59 Trach Collar 21 09/19/17 23:51 36.2 63 16 86/53 (64) 99 Trach Collar 09/19/17 23:03 21 09/19/17 20:00 100 Mechanical Ventilator 21 09/19/17 19:59 36.7 74 18 90/65 (73) 98 Trach Collar 09/19/17 15:30 36.6 72 16 105/73 (84) 100 Trach Collar 09/19/17 15:00 96/68 (77) 09/19/17 14:32 21 09/19/17 12:14 37.2 63 18 99 Trach Collar 09/19/17 11:02 82/62 (69) Physical Exam General Appearance: + thin Eyes: normal inspection Respiratory/Chest: lungs clear Cardiovascular: regular rate, rhythm Abdomen: normal bowel sounds, non tender, soft Neurologic/Psych: alert (but fatigued) Skin: normal color Laboratory Results Last 24 Hours Test 09/19/17 10:31 09/19/17 14:08 09/20/17 06:14 Osmolality 281 mOsm/kg White Blood Count 9.07 K/uL Red Blood Count 3.43 M/uL Hemoglobin 10.4 g/dL Hematocrit 31.4 % Mean Corpuscular Volume 91.5 fL Mean Corpuscular Hemoglobin 30.3 pg Mean Corpuscular Hemoglobin Concent 33.1 g/dl Platelet Count 363 K/uL Mean Platelet Volume 10.1 fL Neutrophils (%) (Auto) 46.0 % Lymphocytes (%) (Auto) 39.4 % Monocytes (%) (Auto) 7.6 % Eosinophils (%) (Auto) 4.6 % Basophils (%) (Auto) 0.6 % Neutrophils # (Auto) 4.18 K/uL Lymphocytes # (Auto) 3.57 K/uL Monocytes # (Auto) 0.69 K/uL Eosinophils # (Auto) 0.42 K/uL Basophils # (Auto) 0.05 K/uL RDW Standard Deviation 55.6 fL RDW Coefficient of Variation 17.0 % Immature Granulocyte % (Auto) 1.8 % Immature Granulocyte # (Auto) 0.16 K/uL Sodium Level 137 mmol/L Potassium Level 3.3 mmol/L Chloride Level 110 mmol/L Carbon Dioxide Level 16 mmol/L Anion Gap 11.0 mmol/L Blood Urea Nitrogen 13 mg/dl Creatinine 0.29 mg/dl Est Creatinine Clear Calc Drug Dose 165.8 ml/min Estimated GFR () 142.8 Estimated GFR (Non- 123.2 BUN/Creatinine Ratio 45.5 Random Glucose 122 mg/dl Calcium Level 8.3 mg/dl Total Bilirubin 0.4 mg/dl Aspartate Amino Transf (AST/SGOT) 29 U/L Alanine Aminotransferase (ALT/SGPT) 21 U/L Alkaline Phosphatase 208 U/L Total Protein 5.7 gm/dl Albumin 2.2 gm/dl Globulin 3.5 gm/dl Albumin/Globulin Ratio 0.6 Assessment and Plan Patient is a 61 yo female with elevated alk phos & bilirubin. These values have begun to improve throughout the hospitalization. A GGT was mildly elevated and AMA is pending. Barring no further development of GI symptoms or worsening labs , this can be followed up as an outpatient. Thank you for allowing us to participate in the care of this patient. If you should have any further questions or concerns, do not hesitate to contact us. Agree with FLORINDA Vásquez as above Abd: Soft, NT, ND Continue current therapy Will sign off at this time, please re-consult if needed
[2017-09-20 11:38] VITALS: BP 85/55; PULSE 69; TEMP 36.7; O2SAT 98
--- NOTE | 2017-09-20 12:08 | Urology Progress Note ---
Progress Note Date of Service Sep 20, 2017. Subjective Pt evaluation today including: conversation w/ family, chart review, lab review Pain: denies PO Intake: via feeding tube Voiding: helton catheter in place 61 YO female, left staghorn calculus with recurrent UTI. Feeling much better today, much more alert. Denies pain. Better able to communicate via family members with eye movements. Helton remains in place, patent. Discussed stone management options with patient and family: they desire referral to [facility], will facilitate. Discussed that patient will continue to have urinary infection as long as stone in place. They will continue to monitor for pain, fevers. Constitutional: + see HPI Eyes: + see HPI Respiratory: + see HPI Cardiovascular: + see HPI Abdomen: No pain Female : + see HPI Neurologic: + see HPI Psychiatric: + see HPI Objective Vital Signs Date Time Temp Pulse Resp B/P (MAP) Pulse Ox O2 Delivery O2 Flow Rate FiO2 09/20/17 07:30 21 09/20/17 07:30 Mechanical Ventilator 21 09/20/17 07:20 21 09/20/17 07:11 36.8 65 20 80/54 (63) 97 09/20/17 03:55 36.4 62 16 94/60 (71) 97 Mechanical Ventilator 09/20/17 02:14 21 09/19/17 23:59 Trach Collar 21 09/19/17 23:51 36.2 63 16 86/53 (64) 99 Trach Collar 09/19/17 23:03 21 09/19/17 20:00 100 Mechanical Ventilator 21 09/19/17 19:59 36.7 74 18 90/65 (73) 98 Trach Collar 09/19/17 15:30 36.6 72 16 105/73 (84) 100 Trach Collar 09/19/17 15:00 96/68 (77) 09/19/17 14:32 21 09/19/17 12:14 37.2 63 18 99 Trach Collar Physical Exam General Appearance: no apparent distress Eyes: normal inspection Neck: supple, no JVD Respiratory/Chest: no respiratory distress (remains on vent via trach collar) Cardiovascular: no edema, no JVD Abdomen: soft Neurologic/Psychiatric: alert Skin: normal color Laboratory Results Last 24 Hours Test 09/19/17 14:08 09/20/17 06:14 Osmolality 281 mOsm/kg White Blood Count 9.07 K/uL Red Blood Count 3.43 M/uL Hemoglobin 10.4 g/dL Hematocrit 31.4 % Mean Corpuscular Volume 91.5 fL Mean Corpuscular Hemoglobin 30.3 pg Mean Corpuscular Hemoglobin Concent 33.1 g/dl Platelet Count 363 K/uL Mean Platelet Volume 10.1 fL Neutrophils (%) (Auto) 46.0 % Lymphocytes (%) (Auto) 39.4 % Monocytes (%) (Auto) 7.6 % Eosinophils (%) (Auto) 4.6 % Basophils (%) (Auto) 0.6 % Neutrophils # (Auto) 4.18 K/uL Lymphocytes # (Auto) 3.57 K/uL Monocytes # (Auto) 0.69 K/uL Eosinophils # (Auto) 0.42 K/uL Basophils # (Auto) 0.05 K/uL RDW Standard Deviation 55.6 fL RDW Coefficient of Variation 17.0 % Immature Granulocyte % (Auto) 1.8 % Immature Granulocyte # (Auto) 0.16 K/uL Sodium Level 137 mmol/L Potassium Level 3.3 mmol/L Chloride Level 110 mmol/L Carbon Dioxide Level 16 mmol/L Anion Gap 11.0 mmol/L Blood Urea Nitrogen 13 mg/dl Creatinine 0.29 mg/dl Est Creatinine Clear Calc Drug Dose 165.8 ml/min Estimated GFR () 142.8 Estimated GFR (Non- 123.2 BUN/Creatinine Ratio 45.5 Random Glucose 122 mg/dl Calcium Level 8.3 mg/dl Total Bilirubin 0.4 mg/dl Aspartate Amino Transf (AST/SGOT) 29 U/L Alanine Aminotransferase (ALT/SGPT) 21 U/L Alkaline Phosphatase 208 U/L Total Protein 5.7 gm/dl Albumin 2.2 gm/dl Globulin 3.5 gm/dl Albumin/Globulin Ratio 0.6 Assessment and Plan 61 YO female, left staghorn calculus with recurrent UTI. Patient significantly improved, clinically. Can continue PO antibiotics per sensitivities for total 10d of coverage. Will coordinate referral to [facility] for likely PCNL. Thank you for allowing us to participate in patient's care. Contact us with any remaining questions/concerns.
[2017-09-20] MEDS ORDERED: CEFD250S2 PO ×2 (12:32→12:42)
--- NOTE | 2017-09-20 12:40 | Discharge Instructions ---
Discharge Instructions Date of Service Sep 20, 2017. Admission Reason for Admission: Altered Mental Status,Uti Discharge Discharge Diagnosis / Problem: Delrium 2/2 UTI Discharge Goals Goal(s): Improve function Activity Recommendations Activity Limitations: resume your previous activity . Instructions / Follow-Up Instructions / Follow-Up During this admission you were treated an evaluated for Delrium. we discovered you delrium was 2/2 to a UTI. While in the hospital you were given Ceftriaxone to treat the infection and improved clinically. We also consulted urology for their advice on how to manage your kidney stones. They agree with our plan to discharge you on antibiotics and to have you follow up with them as an outpatient. WHile in the hospital you were also treated for conjunctivitis, this has since resolved. You were discharge from the hospital on Cefdinir. please take 6 ml of cefdinir 2 times per day for 10 days. If your symptoms do not improve or worsen please contact your pcp or precede directly to the emergency room We request that you obtain a cbc and bmp labs next Saturday or Saturday and followup with your primary care physician within a week of discharge. It has been a pleasure taking care of you during this hospital stay. Have a wonderful summer. Current Hospital Diet Patient's current hospital diet: Discharge Diet Recommended Diet: N/A Pending Studies Studies pending at discharge: no Laboratory Results Date/Time Source Procedure Growth Status 09/17/17 18:00 Urine,Catheterized Urine Culture - Final Klebsiella Pneumoniae Serratia Marcescens Complete Medical Emergencies . Who to Call and When: Medical Emergencies: If at any time you feel your situation is an emergency, please call 911 immediately. . Non-Emergent Contact Non-Emergency issues call your: Primary Care Provider . . "Provider Documentation" section prepared by Qasim Shields. .
[2017-09-20 13:16] VITALS: BP 85/55; PULSE 69; TEMP 36.7; O2SAT 98
--- NOTE | 2017-09-20 19:22 | Discharge Summary ---
Discharge Summary Date of Service Sep 20, 2017. Discharge Summary Admission Date: Sep 17, 2017 at 20:51 Discharge Date: Sep 20, 2017 Discharge Disposition: Home Principal Diagnosis: UTI, possible sepsis, AMS Immunizations: Have You Had Influenza Vaccine: Yes History of Tetanus Vaccine?: Yes History of Pneumococcal: Yes History of Hepatitis B Vaccine: Unknown Medication Reconciliation New Medications: Cefdinir (Omnicef) 250 Mg/5 Ml Susp 6 ML PO BID for 10 Days, BTL Continued Medications: Acetaminophen (Tylenol) 325 Mg Tab 325 MG PEG Q6H PRN for Pain, TAB Alprazolam (Alprazolam) 0.5 Mg Tab 0.5 MG PEG Q6H PRN for Anxiety Ascorbic Acid (Vitamin C) 500 Mg Chw 500 MG PEG DAILY Buspirone Hcl (Buspirone Hcl) 10 Mg Tab 10 MG PEG BID, TAB Dextromethorphan Hbr-Quinidine (Nuedexta) 1 Cap Cap 10 MG PEG BID Enteral Nutrition Formula (Jevity 1.5 Marlon) 1 Can Liqd 1 CAN PEG UD, CAN Estrog Conj/Medryoxyprog Acet (Prempro 0.625MG/2.5MG) Tab 1 TAB PEG HS, TAB Ipratropium-Albuterol (Duoneb) 3 Ml Nebu 1 TREATMENT INH Q4H, INHA Lactobacillus Acidophilus (Lactinex Granules) 1 Gm Pkt 1 GM PEG TIDM Lansoprazole (Prevacid Solutab) 30 Mg Soco 30 MG PEG HS, TAB Loratadine (Claritin) 10 Mg Tab 10 MG PEG DAILY PRN for ALLGERIES, TAB Lorazepam (Ativan) 0.5 Mg Tab 0.5 MG PEG TID Metoprolol Tartrate (Lopressor) (Lopressor) 25 Mg Tab 12.5 MG PEG BID, TAB Ondansetron Hcl (Zofran) 4 Mg/5 Ml Syrp 5-8 ML PEG Q6H PRN for Nausea Polyethylene Glycol 3350 (Miralax) 1 Pow Pow 17 GM PO DAILY Riluzole (Riluzole) 50 Mg Tab 50 MG PEG BID Saccharomyces Boulardii (Florastor) 250 Mg Cap 250 MG PEG BID Sennosides (Senna) 8.8 Mg/5 Ml Syp 10 ML PEG QAM Zolpidem Tartrate (Ambien) 5 Mg Tab 5 MG PEG HS Hospital Course 61 y/o female with a history of ALS, chronic respiratory failure s/p tracheostomy, History of Kidney stones, HTN, generalized anxiety disorder, Anemia of chronic disease, and GERD presenting with encephalopathy UTI related to staghorn calculus and intermittent urethral catheterization with possible sepsis triggering encephalopathy - given stone - have to assume a bit of renal involvement in infection much like a pyelonephritis -fortunately improved quite quickly, is stable for home / wants to go home / is back to baseline per family -EXTENSIVE discussion of risks/benefits now that two separate bacteria are growing as a late finding -- dominant strain appears to be the klebsiella - grew first, is sensitive to abx used. serratia ?colonization/contaminant - as it is resistant to what we've used, and therefore she should not have gotten better with ceftriaxone when serratia resistant if it was offending pathogen. d /w pt/family risks/benefits of treating just the clinically likely strain vs both -risk of treating just the clinically likely: that serratia really is playing a role and she could get sicker requiring change in abx regimen or even re-hospitalization. to this end they would watch for any deterioration/AMS/ fever/etc and return right away -risk of treating both strains: with her allergy to bactrim, we would have to use something broader such as ertapenem to treat both, raising risk of developing further abx resistance in the context of a woman HIGHLY likely to need abx in the future (recurrent UTIs quite likely until /unless stone can be remedied, pneumonia not unlikely w chronic vent) -she and family all in agreement to treat clinically likely strain and maintain vigilance for any decompensation --> therefore home on cefdinir, outpt f/u, labs (CBC, BMP) early next week, close PCP f/u -for staghorn - referral to [facility] Hyponatremia -likely relates to all of above, corrected with treatment, supportive care, and fluids -BMP next week Encephalopathy - relates to above - back to baseline mentation conjunctivitis -resolved. seemed most likely viral. likely progression of events leading to admission was systemic viral illness causing a relative immune compromise, then bacteria chronically on staghorn able to overgrow and cause UTI/pyelo/sepsis picture. can't rule out CIC playing a role, but this seems most likely cascade of events. Hypokalemia - replaced Elevated Alk Phos, Hyperbilirubinemia - elevated from baseline, no GI complaints, abdominal exam benign - U/S Abdomen - GI consulted" -lack of GI symptoms, it is unclear that the gallstones/sludge are contributing to the abnormal alk phos & bilirubin. -obtain GGT. -GGT is elevated, would consider obtaining AMA and possibly MRCP for further evaluation -ama can be followed up as an outpatientoutpatient. -If the GGT is normal, would consider evaluation for bone abnormalities. 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 Discharge Instructions Please refer to the electronic Patient Visit Report (Discharge Instructions) for additional information. Additional Copies To Jean Christy III, CRNP
== END 2017-09-20 14:00 | disposition home health service (06) | DRG 871 ==
LOC: C.EDB 16:01 → C.2T 20:51 → ENRESERV 21:07 → C.2E 09-18 00:43 → CANBEDREQ 09-19 18:42
PROVIDERS: ADMIT Hospitalist; ATTEND Family Medicine
DX: A41.9 Sepsis, unspecified organism (principal); G93.41 Metabolic encephalopathy; R53.2 Functional quadriplegia; N39.0 Urinary tract infection, site not specified; E87.1 Hypo-osmolality and hyponatremia; G12.21 Amyotrophic lateral sclerosis; J96.10 Chronic respiratory failure, unspecified whether with hypoxia or hypercapnia; Z99.11 Dependence on respirator [ventilator] status; N20.0 Calculus of kidney; B96.1 Klebsiella pneumoniae [K. pneumoniae] as the cause of diseases classified elsewhere; B30.9 Viral conjunctivitis, unspecified; E87.6 Hypokalemia; R74.8 Abnormal levels of other serum enzymes; E80.6 Other disorders of bilirubin metabolism; I10 Essential (primary) hypertension; D63.8 Anemia in other chronic diseases classified elsewhere; K21.9 Gastro-esophageal reflux disease without esophagitis; F41.1 Generalized anxiety disorder; Z93.0 Tracheostomy status; Z87.440 Personal history of urinary (tract) infections; Z87.442 Personal history of urinary calculi; Z79.890 Hormone replacement therapy; Z79.899 Other long term (current) drug therapy; Z88.2 Allergy status to sulfonamides

== ENCOUNTER 2017-10-20 12:04 | Emergency (ER) | payer BC, OTHER ==
[~2017-10-20] VITALS: Ht 160 cm; Wt 58.3 kg
[~2017-10-20 12:04] MED LIST changes: -ASCO1CHW PEG; +ASCO500C3 PEG; -DTR5 PEG; +LACT1GRA PEG; -LCTXP PO; +LORA-741 PEG; -MRLP17 PEG; +POLY335019 PO; +SENN8.8S5 PEG; -SNKUDL10 PO; +ZOLP5TAB PEG
[2017-10-20 12:08] VITALS: TEMP 36.9; Ht 160 cm; Wt 58.3 kg
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
--- NOTE | 2017-10-20 13:22 | DIAGNOSTIC IMAGING REPORT ---
CHEST ONE VIEW PORTABLE HISTORY: 61 years-old Female CHEST PAIN acute atypical chest pain COMPARISON: Chest radiograph 09/17/2017 TECHNIQUE: Semierect AP view of the chest FINDINGS: Tracheostomy cannula overlies the midline at the level of the clavicular heads, unchanged. Cardiac silhouette is within normal limits in size. There is no pneumothorax or large pleural effusion. Mild left hemidiaphragm elevation with subsegmental left basilar opacities. Degenerative changes of the shoulders and spine with mild convex right scoliosis about the thoracic spine. Leads are again noted projecting about the bilateral abdominal upper quadrants. IMPRESSION: 1. Stable positioning of tracheostomy cannula. 2. Mild left hemidiaphragmatic elevation with subsegmental left basilar opacities suggesting atelectasis or pneumonia. The above report was generated using voice recognition software. It may contain grammatical, syntax or spelling errors. Electronically signed by: Nicola Resendiz M.D. 10/20/2017 1:21 PM Dictated Date/Time: 10/20/2017 1:19 PM
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
[2017-10-20] MEDS ORDERED: CIPR0.3S OP (15:30)
[2017-10-20] MEDS ORDERED: CIPROFLOXACIN HCL 0.3% OP SOLN 2.5 ML BTL OP STA (15:40)
[2017-10-20 16:05] VITALS: BP 103/79; PULSE 96; O2SAT 97
== END 2017-10-20 16:05 | disposition home or self-care (01) ==
LOC: C.EDB 12:04
DX: S00.83XA Contusion of other part of head, initial encounter (principal); Y04.8XXA Assault by other bodily force, initial encounter; Y92.019 Unspecified place in single-family (private) house as the place of occurrence of the external cause; Y07.499 Other family member, perpetrator of maltreatment and neglect; G12.21 Amyotrophic lateral sclerosis; D64.9 Anemia, unspecified; K21.9 Gastro-esophageal reflux disease without esophagitis; Z99.11 Dependence on respirator [ventilator] status; Z93.0 Tracheostomy status; Z79.899 Other long term (current) drug therapy; Z88.2 Allergy status to sulfonamides